=== PATIENT | male | born 1955 | race Caucasian/White ===

== ENCOUNTER 2023-03-24 07:20 | Outpatient (CLI) | payer OTHER, SELFPAY | END 2023-03-24 07:21 | disposition home or self-care (01) | LOC: NFLDREF 03-27 09:52 | PROVIDERS: PCP Family Medicine; Referring Provider Family Medicine; Visit Provider Family Medicine | DX: Z13.1 Encounter for screening for diabetes mellitus (principal); Z12.5 Encounter for screening for malignant neoplasm of prostate; Z13.6 Encounter for screening for cardiovascular disorders | CPT/HCPCS: 80061; 82947; 84153 ==

== ENCOUNTER 2023-04-03 18:40 | Emergency (ER) | payer OTHER, SELFPAY ==
[2023-04-03 18:47] VITALS: BP 130/65; PULSE 80; RESP 18; TEMP 36.5; O2SAT 99; BMI 19.4
--- NOTE | 2023-04-03 19:04 | CRLHL7_ITS ---
For Patients: As a result of the Century Cures Act, medical imaging exams and procedure reports are released immediately into your electronic medical record. You may view this report before your referring provider. If you have questions, please contact your health care provider. INDICATION: Shoulder pain, no injury. TECHNIQUE: Three views of the right shoulder. FINDINGS: Glenohumeral joint is normal. Subacromial space is preserved. Moderate AC joint arthrosis. Otherwise normal exam. Dictated by Carlos Glynn MD @ 04/03/2023 8:04:46 PM (Electronically Signed)
--- NOTE | 2023-04-03 19:11 | ED_ITS ---
HPI - General Adult General Date Seen: 04/03/23 Chief complaint: Shoulder Injury/Pain Stated complaint: R shoulder pain Time Seen by Provider: 04/03/23 18:43 Source: patient and family Mode of arrival: ambulatory Limitations: no limitations History of Present Illness HPI narrative: Patient is a 67-year-old gentleman who presents here with the right shoulder discomfort he is right-hand dominant, for the last 48 hours he has noted increasing pain in his right shoulder and really inability to move it around, his tells me they really could move it that well before, but this is significant issue with moving it now. He has not had any fevers or chills associated with this, he reports shoulder swollen. There is no history trauma or injury associated with this. He has no past history of gout. 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 Is now on a decreasing dosage of steroids which I believe from his description is Medrol. Denies any numbness tingling weakness the pain does not arise in his neck, does not go down his arm stays in the shoulder itself. He has taken 800 mg of ibuprofen today for the discomfort. Is not taking Tylenol. Associated symptoms: denies other symptoms Treatments prior to arrival: NSAID Related Data Previous Rx's Medication Instructions Recorded hydroxychloroquine 200 mg tablet 200 mg PO BID #180 tabs 03/01/23 hydroxyzine HCl 25 mg tablet 25 - 50 mg (1 - 2 x 25 mg) PO TID 03/28/23 PRN anxiety #90 tabs prednisone 20 mg tablet 20 - 60 mg (1 - 3 x 20 mg) PO QDAY 03/28/23 #42 tabs triamcinolone acetonide 0.1 % 1 applic topical BID #80 grams 03/28/23 topical cream Allergies Allergy/AdvReac Type Severity Reaction Status Date / Time No Known Drug Allergies Allergy Verified 03/28/23 13:33 Review of Systems Status of ROS: Reports: 10 or more systems reviewed and unremarkable except as noted in History and below [facility] Medical History Boil ?L02.92 - Furuncle, unspecified (ICD-10) Lupus ?M32.9 - Systemic lupus erythematosus, unspecified (ICD-10) Social History Smoking Status: Never smoker Do you use any of these nicotine containing products: None Second hand tobacco smoke exposure: No How often do you have a drink containing alcohol: 4 or more times a week How many standard drinks containing alcohol do you have on a typical day: 1 or 2 How often do you have six or more drinks on one occasion: Never AUDIT-C Alcohol total score: 4 Non-prescribed substance use: denies use Little interest or pleasure in doing things: several days Feeling down, depressed, or hopeless: several days service: No Exam Narrative: Exam Narrative: On examination he is examined, he clearly has a rash of exfoliative dermatitis on his body, his right shoulder does appear more swollen than his left, he has really limited external rotation noted of his right shoulder he can come to neutral. He has limited abduction to approximately 30?, there is no tenderness to palpation over his AC joint all the pains he has to be anterior over shoulder. His biceps has movement on the right side, in come rate up with this, extension of his triceps is normal is brachial and radial pulses are normal in his right side is weaver hand strengths are normal finger abduction 1st finger opposition is normal his neck has normal range of motion in flexion extension lateral flexion and rotation. Sensation is normal over his right hand and arm. Const: Vital Signs, click to edit/add: Vital Signs - 24 hr 04/03/23 18:47 Temperature 97.7 F Pulse Rate [Pulse Oximeter] 80 Respiratory Rate 18 Blood Pressure [Le ft Upper Arm] 130/65 Pulse Oximetry 99 Oxygen Delivery Me thod Room Air Course Course Hospital Course: I also did ultrasound of his the right shoulder, this showed just trace amount of fluid 1-2 mm overlying the humeral head. I wonder if this is consistent with more rotator cuff type injury. As he definitely is on medication, such as steroids with this could have occurred his sleep. We talked about possibility of this being septic arthritis, given his immunosuppression with of both the steroid hydroxychloroquine, I do not think this occurred he does not have a large effusion, I think tapping this would be the wrong idea the sore, I contacted Orthopedics and they will see him early this week. Will give some tramadol for the pain he can take a better dose ibuprofen and Tylenol and will sling it, and kind of go from there he was okay with this, but I do want him to follow-up if he has fevers chills worsening condition. He was comfortable with this. Vital Signs Vital signs: Initial Vital Signs Temperature 97.7 F 04/03/23 18:47 Temperature Source Temporal Artery Scan 04/03/23 18:47 Pulse Rate 80 04/03/23 18:47 Pulse Rhythm Regular 04/03/23 18:47 Respiratory Rate 18 04/03/23 18:47 Blood Pressure 130/65 04/03/23 18:47 Blood Pressure Mean 86 04/03/23 18:47 Blood Pressure Position Sitting 04/03/23 18:47 Pulse Oximetry 99 04/03/23 18:47 Oxygen Delivery Method Room Air 04/03/23 18:47 Vital Signs Temperature 97.7 F 04/03/23 18:47 Pulse Rate 80 04/03/23 18:47 Respiratory Rate 18 04/03/23 18:47 Blood Pressure 130/65 04/03/23 18:47 Pulse Oximetry 99 04/03/23 18:47 Oxygen Delivery Method Room Air 04/03/23 18:47 Temperature 97.7 F 04/03/23 18:47 Pulse Rate 80 04/03/23 18:47 Respiratory Rate 18 04/03/23 18:47 Blood Pressure 130/65 04/03/23 18:47 Pulse Oximetry 99 04/03/23 18:47 Oxygen Delivery Method Room Air 04/03/23 18:47 Medical Decision Making Imaging Data Shoulder x-ray: My impression: Negative shoulder x-ray Radiologist's impression: Patient: ONEAL TOUSSAINT Facility: [facility] . Site : 1955 Study: XRay Shoulder Right 3 VIEWS-04/03/2023 7:23:04 PM Ordering Physician: Chitra Duarte Final Report: INDICATION: Shoulder pain, no injury. TECHNIQUE: Three views of the right shoulder. FINDINGS: Glenohumeral joint is normal. Subacromial space is preserved. Moderate AC joint arthrosis. Otherwise normal exam. Dictated by Carlos Glynn MD @ 04/03/2023 8:04:46 PM (Electronic Signature) Discharge Plan Discharge Clinical Impression: Shoulder pain, right Patient Disposition: Home w/ Parent or Adult Condition: Improved Instructions: Arthralgia (ED), Shoulder Pain (ED), Shoulder Impingement S yndrome (ED) Additional Instructions: Home rest use of ibuprofen 800 mg p.o. t.i.d. may also use some Tylenol with this a tramadol for breakthrough pain, sling also. I spoke to Orthopedics and they will call you this week to get you in to be seen, return to the emergency room if increasing pain fevers chills or swelling Prescriptions: No Action prednisone 20 mg tablet 20 - 60 mg PO QDAY Qty: 42 0RF Rx Instructions: Take 60mg daily x 1 week, then 40 mg daily x 1 week, then 20 mg daily x 1 week. hydroxyzine HCl 25 mg tablet 25 - 50 mg PO TID PRN (Reason: anxiety) Qty: 90 1RF triamcinolone acetonide 0.1 % cream 1 applic topical BID Qty: 80 0RF Rx Instructions: Apply topically to affected area twice daily for 3 days at a time, give 4 days off of cream to minimize thinning of skin hydroxychloroquine 200 mg tablet 200 mg PO BID Qty: 180 0RF Follow Up/Referrals: Kush Huntley MD [Primary Care Provider] - Stand Alone Forms: [employer] Info Instructions
== END 2023-04-03 20:15 | disposition home or self-care (01) ==
PROVIDERS: Emergency Provider Family Medicine; PCP Family Medicine
DX: M25.511 Pain in right shoulder (principal)
CPT/HCPCS: 73030; 99283; 99284

== ENCOUNTER 2023-04-05 08:27 | Outpatient (CLI) | payer OTHER, SELFPAY | END 2023-04-05 08:28 | disposition home or self-care (01) | LOC: NFLDREF 18:42 | PROVIDERS: PCP Family Medicine; Referring Provider Family Medicine; Visit Provider Physician Assistant Surgical | DX: L93.2 Other local lupus erythematosus (principal); M32.9 Systemic lupus erythematosus, unspecified; Z79.631 Long term (current) use of antimetabolite agent; M25.511 Pain in right shoulder | CPT/HCPCS: 80076 ==

== ENCOUNTER 2023-04-08 16:49 | Inpatient (IN) | payer OTHER, SELFPAY ==
[2023-04-08] VITALS (8 sets, daily range): BP systolic 118–128; BP diastolic 65–66; PULSE 72–89; RESP 18; TEMP 38.3–38.4; O2SAT 96–97; BMI 19.4
[2023-04-08 17:14] LABS: Appearance Urine Clear (Clear); Bilirubin Urine Negative (Negative); Blood Urine Negative (Negative); Color Urine Yellow (Yellow); Glucose Urine Negative (Negative); Ketones Urine Negative (Negative); Leukocyte Esterase Urine Trace (Negative); Nitrite Urine Negative (Negative); Protein Urine Negative (Negative); pH Urine 8.5 (5.0-8.5)
[2023-04-08 17:28] LABS: RBC Urine 0-2 (0-2); WBC Urine 0-2 (0-5)
--- NOTE | 2023-04-08 17:44 | ED.FEVER ---
HPI - Fever General Time Seen by Provider: 17:44 <Aminata Link MD - Last Filed: 04/09/23 11:09> Date Seen: 04/08/23 <Aminata Link MD - Last Filed: 04/09/23 11:09> Chief Complaint: Fever <Aminata Link MD - Last Filed: 04/09/23 11:09> Stated Complaint: Fever <Aminata Link MD - Last Filed: 04/09/23 11:09> Time Seen by Provider: 04/08/23 17:41 <Aminata Link MD - Last Filed: 04/09/23 11:09> Source: patient and RN notes reviewed <Aminata Link MD - Last Filed: 04/09/23 11:09> Mode of arrival: ambulatory <Aminata Link MD - Last Filed: 04/09/23 11:09> Limitations: no limitations <Aminata Link MD - Last Filed: 04/09/23 11:09> History of Present Illness HPI Narrative: Patient is a 67-year-old male coming in [facility] with primary concern of his right neck hurting him. He states it hurts on the right side cannot move. It does not hurt centrally but the side. He has developed a fever today as well. Patient was seen on the 18 of this month with onset of acute right shoulder pain for few days. They were worried potentially about rotator cuff pathology verses frozen shoulder per patient's report. I have reviewed the note. X-ray showed some AC joint arthritis but otherwise no acute abnormality. He did get an ultrasound over the area by the ED physician and there was some minimal fluid. Patient did follow up with Orthopedics, is scheduled to have an MRI of his shoulder this next week. Now, since last night he developed right neck pain, hurts to turn his neck or move it only on the right side. There is no numbness tingling in the arm. He has a document temperature of a 101.2?. His gave him 2 Tylenol arthritis which were 650 mg around 4:00 p.m. today. He was given some tramadol for pain relief. 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 Denies any shortness of breath or cough. His family feels like his speech is maybe been a little off, confused today. Patient notes that yesterday he did try to go about his day and did drive. He was having some pain with raising his shoulder but was still able to drive. They have noted that he is globally more weak. He has noticed some increase dribbling with urination but no dysuria. Denies any abdominal pain, no nausea or vomiting. <Aminata Link MD - Last Filed: 04/09/23 11:09> MD elicited complaint: fever, weakness and other (right neck pain, shoulder pain) <Aminata Link MD - Last Filed: 04/09/23 11:09> Related Data Home Medications: Home Medications Medication Instructions Recorded Confirmed acetaminophen 500 mg tablet 500 mg PO Q6H PRN 04/05/23 04/09/23 (Tylenol Extra Strength) prednisone 20 mg tablet 20 - 60 mg PO DAILY 04/09/23 04/09/23 tramadol 50 mg tablet 50 mg PO QHS PRN pain 04/09/23 04/09/23 Previous Rx's Medication Instructions Recorded hydroxyzine HCl 25 mg tablet 25 - 50 mg (1 - 2 x 25 mg) PO TID 03/28/23 PRN anxiety #90 tabs triamcinolone acetonide 0.1 % 1 applic topical BID #80 grams 03/28/23 topical cream methotrexate sodium 2.5 mg tablet 20 mg (8 x 2.5 mg) PO QWEEK #32 04/05/23 tabs <Aminata Link MD - Last Filed: 04/09/23 11:09> Allergies/Adverse Reactions: Allergies Allergy/AdvReac Type Severity Reaction Status Date / Time No Known Drug Allergies Allergy Verified 04/05/23 11:22 <Aminata Link MD - Last Filed: 04/09/23 11:09> Review of Systems Status of ROS Reports: 10 or more systems reviewed and unremarkable except as noted in History and below <Aminata Link MD - Last Filed: 04/09/23 11:09> [facility] Medical History: Medical History Cutaneous lupus erythematosus ?L93.2 - Other local lupus erythematosus (ICD-10) Boil ?L02.92 - Furuncle, unspecified (ICD-10) Lupus ?M32.9 - Systemic lupus erythematosus, unspecified (ICD-10) <Aminata Link MD - Last Filed: 04/09/23 11:09> Social History: Social History What is your current living situation: I presently have a place to live Problems where you live: no known problems Problems where you live details: none In the past 12 months, utilities in danger of being shut off: no In the past 12 mos, have been you worried that your food would run out before you had money to buy more?: never true In the past 12 mos, the food you bought just didn't last and you didn't have money to buy more?: never true Highest level of school completed/degree received: Master's degree Smoking Status: Never smoker Do you use any of these nicotine containing products: None Second hand tobacco smoke exposure: No How often do you have a drink containing alcohol: 2-3 times a week How many standard drinks containing alcohol do you have on a typical day: 1 or 2 How often do you have six or more drinks on one occasion: Never AUDIT-C Alcohol total score: 3 Non-prescribed substance use: denies use Caffeine: Yes (2 cups of coffee) How often does anyone, including family, friends and others, physically hurt you: How often does anyone, including family, friends and others, insult or talk down to you: How often does anyone, including family, friends and others, threaten you with harm: How often does anyone, including family, friends and others, scream or curse at you: Little interest or pleasure in doing things: several days Feeling down, depressed, or hopeless: several days Gender Identity: male service: No <Aminata Link MD - Last Filed: 04/09/23 11:09> Exam Const Vital Signs, click to edit/add: Vital Signs - 24 hr 04/08/23 17:00 04/08/23 17:18 04/08/23 17:27 Temperature 101.2 F H Pulse Rate 72 73 Pulse Rate [Pulse Oximeter] 89 Respiratory Rate 18 Blood Pressure 128/66 Blood Pressure [Left Upper Arm] 124/65 Blood Pressure [Right Arm] Pulse Oximetry 96 97 97 Oxygen Delivery Method Room Air 04/08/23 17:29 04/08/23 17:30 04/08/23 17:31 Temperature Pulse Rate 76 75 Pulse Rate [Pulse Oximeter] Respiratory Rate Blood Pressure 118/65 Blood Pressure [Left Upper Arm] Blood Pressure [Right Arm] Pulse Oximetry 96 96 96 Oxygen Delivery Method Room Air 04/08/23 18:00 04/08/23 18:19 04/09/23 00:52 Temperature 100.9 F H 99.5 F Pulse Rate 83 Pulse Rate [Pulse Oximeter] Respiratory Rate 20 Blood Pressure Blood Pressure [Left Upper Arm] Blood Pressure [Right Arm] 156/69 H Pulse Oximetry 97 97 Oxygen Delivery Method Room Air 04/09/23 01:04 04/09/23 01:15 04/09/23 03:00 Temperature 100.1 F H 102.9 F H Pulse Rate Pulse Rate [Pulse Oximeter] 82 Respiratory Rate 20 20 Blood Pressure Blood Pressure [Left Upper Arm] Blood Pressure [Right Arm] 132/58 L Pulse Oximetry 97 95 Oxygen Delivery Method Room Air Room Air 04/09/23 03:34 04/09/23 05:44 04/09/23 05:44 Temperature 102.9 F H 98.2 F 98.2 F Pulse Rate Pulse Rate [Pulse Oximeter] Respiratory Rate Blood Pressure Blood Pressure [Left Upper Arm] Blood Pressure [Right Arm] Pulse Oximetry Oxygen Delivery Method <Aminata Link MD - Last Filed: 04/09/23 11:09> Vital Signs - 24 hr 04/08/23 17:00 04/08/23 17:18 04/08/23 17:27 Temperature 101.2 F H Pulse Rate 72 73 Pulse Rate [Pulse Oximeter] 89 Respiratory Rate 18 Blood Pressure 128/66 Blood Pressure [Left Upper Arm] 124/65 Blood Pressure [Right Arm] Pulse Oximetry 96 97 97 Oxygen Delivery Method Room Air 04/08/23 17:29 04/08/23 17:30 04/08/23 17:31 Temperature Pulse Rate 76 75 Pulse Rate [Pulse Oximeter] Respiratory Rate Blood Pressure 118/65 Blood Pressure [Left Upper Arm] Blood Pressure [Right Arm] Pulse Oximetry 96 96 96 Oxygen Delivery Method Room Air 04/08/23 18:00 04/08/23 18:19 04/09/23 00:52 Temperature 100.9 F H 99.5 F Pulse Rate 83 Pulse Rate [Pulse Oximeter] Respiratory Rate 20 Blood Pressure Blood Pressure [Left Upper Arm] Blood Pressure [Right Arm] 156/69 H Pulse Oximetry 97 97 Oxygen Delivery Method Room Air 04/09/23 01:04 04/09/23 01:15 04/09/23 03:00 Temperature 100.1 F H 102.9 F H Pulse Rate Pulse Rate [Pulse Oximeter] 82 Respiratory Rate 20 20 Blood Pressure Blood Pressure [Left Upper Arm] Blood Pressure [Right Arm] 132/58 L Pulse Oximetry 97 95 Oxygen Delivery Method Room Air Room Air 04/09/23 03:34 04/09/23 05:44 04/09/23 05:44 Temperature 102.9 F H 98.2 F 98.2 F Pulse Rate Pulse Rate [Pulse Oximeter] Respiratory Rate Blood Pressure Blood Pressure [Left Upper Arm] Blood Pressure [Right Arm] Pulse Oximetry Oxygen Delivery Method <Junior Salcedo MD - Last Filed: 04/08/23 21:37> Documenting provider has reviewed patient's vital signs: yes <Aminata Link MD - Last Filed: 04/09/23 11:09> Common normals: no apparent distress, oriented x3, no limitations, healthy appearing and alert <Aminata Link MD - Last Filed: 04/09/23 11:09> General appearance: cooperative, comfortable, well kempt and well developed <Aminata Link MD - Last Filed: 04/09/23 11:09> Nutritional appearance: thin <Aminata Link MD - Last Filed: 04/09/23 11:09> HENMT Common normals: normocephalic, head/scalp atraumatic, hearing grossly normal bilaterally, external ears normal, EAC's normal, TM's normal bilaterally, external nose normal, nasal mucous membranes and turbinates normal, moist oral mucous membranes, oropharynx normal, dentition normal and gingiva normal <Aminata Link MD - Last Filed: 04/09/23 11:09> Head and scalp: normocephalic and atraumatic <Aminata Link MD - Last Filed: 04/09/23 11:09> Nose: external nose normal and nasal mucous membranes and turbinates normal <Aminata Link MD - Last Filed: 04/09/23 11:09> External ear: external ears normal <Aminata Link MD - Last Filed: 04/09/23 11:09> External auditory canal: EAC's normal <Aminata Link MD - Last Filed: 04/09/23 11:09> Tympanic membrane: TM's normal bilaterally <Aminata Link MD - Last Filed: 04/09/23 11:09> Eye Common normals: PERRL, EOMs intact bilaterally, conjunctivae normal and no scleral icterus <Aminata Link MD - Last Filed: 04/09/23 11:09> Conjunctiva: conjunctiva(e) normal <Aminata Link MD - Last Filed: 04/09/23 11:09> Pupil: PERRL <Aminata Link MD - Last Filed: 04/09/23 11:09> Neck & C-Spine Common normals: no lymphadenopathy, no JVD and thyroid normal <Aminata Link MD - Last Filed: 04/09/23 11:09> Thyroid: thyroid normal <Aminata Link MD - Last Filed: 04/09/23 11:09> Other: Complains of significant pain when I palpate along his right trapezius border, no midline tenderness however. He states when he attempts to turn his neck or flex it is hurting along this right muscular border. I feel no mass. <Aminata Link MD - Last Filed: 04/09/23 11:09> Lymph Lymphatic: no lymphadenopathy noted <Aminata Link MD - Last Filed: 04/09/23 11:09> Chest Common normals: inspection of chest normal and palpation of chest normal <Aminata Link MD - Last Filed: 04/09/23 11:09> Resp Common normals: normal respiratory effort, no retractions, no use of accessory muscles and clear to auscultation bilaterally <Aminata Link MD - Last Filed: 04/09/23 11:09> Auscultation: clear to auscultation bilaterally <Aminata Link MD - Last Filed: 04/09/23 11:09> Cardio Common normals: no JVD, regular rate, regular rhythm, S1 normal heart sound, S2 normal heart sound, no gallops, no clicks and no murmurs <Aminata Link MD - Last Filed: 04/09/23 11:09> Rate: regular rate <Aminata Link MD - Last Filed: 04/09/23 11:09> Rhythm: regular rhythm <Aminata Link MD - Last Filed: 04/09/23 11:09> Heart sounds: S1 normal and S2 normal <Aminata Link MD - Last Filed: 04/09/23 11:09> GI Common normals: Normal to inspection, nondistended, normoactive bowel sounds present, soft to palpation, non-tender, no hepatosplenomegaly and no masses <Aminata Link MD - Last Filed: 04/09/23 11:09> Palpation: soft and no hepatosplenomegaly <Aminata Link MD - Last Filed: 04/09/23 11:09> Extremity Other: Is palpably tender along the right anterior shoulder, very limited range of motion. Do not feel any extensive effusion over the shoulder, no overlying erythema seen. He is most definitely limited with range of motion however. Distal sensation and strength is intact in this extremity. <Aminata Link MD - Last Filed: 04/09/23 11:09> Neuro Common normals: oriented x3 <Aminata Link MD - Last Filed: 04/09/23 11:09> Sensorium/orientation: alert <Aminata Link MD - Last Filed: 04/09/23 11:09> Psych Appearance: well kempt <Aminata Link MD - Last Filed: 04/09/23 11:09> Other: Do not note any significant slurring of his speech. Do have a sense that sometimes he seems a bit confused into understand why family members are concerned about him being off. <Aminata Link MD - Last Filed: 04/09/23 11:09> Course Course Hospital Course: Patient is concerning for septic arthritis or underlying significant infection, definitely is immunocompromised with his prednisone and methotrexate. He did get tramadol prescribed as well, wonder if that could be some of the confusion but certainly fever and infection could be causing this, i.e. acute delirium developing. Will obtain full complement labs including blood cultures. I am going to image his head with CT as well as cervical spine with CT. I do not have capacity to do MRI at this time. Have reviewed his right shoulder x-ray, do not plan on reimaging this with plain films at this time. His did just give him adequate dose of Tylenol less than 2 hours ago, will continue to monitor and see if this works his fever down. <Aminata Link MD - Last Filed: 04/09/23 11:09> Reevaluation(s) Time of Reevaluation #1: 20:32 <Aminata Link MD - Last Filed: 04/09/23 11:09> Reevaluation #1: Patient is feeling a bit better, recheck of his temperature is 99.3? F. Have reviewed that we have ordered chest CT and right shoulder CT to help further delineate exact etiology of infection. Certainly an MRI would be better but we cannot do that. We do need to try to rule out a right shoulder septic arthritis. I have preliminarily reviewed this with the hospitalist. We will be signing out to Dr. Salcedo. <Aminata Link MD - Last Filed: 04/09/23 11:09> Consultations Consultation #1: Reviewed case with hospitalist. He would like us to proceed with chest CT with IV contrast and CT of right shoulder. Will certainly see if there is truly an underlying pneumonia on the chest CT, see if there is any potential evidence for septic arthritis of this right shoulder. <Aminata Link MD - Last Filed: 04/09/23 11:09> Time: 20:00 <Aminata Link MD - Last Filed: 04/09/23 11:09> Vital Signs Vital signs: Initial Vital Signs Temperature 101.2 F H 04/08/23 17:00 Temperature Source Temporal Artery Scan 04/08/23 17:00 Pulse Rate 89 04/08/23 17:00 Respiratory Rate 18 04/08/23 17:00 Blood Pressure 124/65 04/08/23 17:00 Blood Pressure Mean 84 04/08/23 17:00 Pulse Oximetry 96 04/08/23 17:00 Oxygen Delivery Method Room Air 04/08/23 17:00 Vital Signs Temperature 101.2 F H 04/08/23 17:00 Pulse Rate 89 04/08/23 17:00 Respiratory Rate 18 04/08/23 17:00 Blood Pressure 124/65 04/08/23 17:00 Pulse Oximetry 96 04/08/23 17:00 Oxygen Delivery Method Room Air 04/08/23 17:00 Temperature 98.2 F 04/09/23 05:44 Pulse Rate 82 04/09/23 03:00 Respiratory Rate 20 04/09/23 03:00 Blood Pressure 132/58 L 04/09/23 03:00 Pulse Oximetry 95 04/09/23 03:00 Oxygen Delivery Method Room Air 04/09/23 03:00 <Aminata Link MD - Last Filed: 04/09/23 11:09> Initial Vital Signs Temperature 101.2 F H 04/08/23 17:00 Temperature Source Temporal Artery Scan 04/08/23 17:00 Pulse Rate 89 04/08/23 17:00 Respiratory Rate 18 04/08/23 17:00 Blood Pressure 124/65 04/08/23 17:00 Blood Pressure Mean 84 04/08/23 17:00 Pulse Oximetry 96 04/08/23 17:00 Oxygen Delivery Method Room Air 04/08/23 17:00 Vital Signs Temperature 101.2 F H 04/08/23 17:00 Pulse Rate 89 04/08/23 17:00 Respiratory Rate 18 04/08/23 17:00 Blood Pressure 124/65 04/08/23 17:00 Pulse Oximetry 96 04/08/23 17:00 Oxygen Delivery Method Room Air 04/08/23 17:00 Temperature 98.2 F 04/09/23 05:44 Pulse Rate 82 04/09/23 03:00 Respiratory Rate 20 04/09/23 03:00 Blood Pressure 132/58 L 04/09/23 03:00 Pulse Oximetry 95 04/09/23 03:00 Oxygen Delivery Method Room Air 04/09/23 03:00 <Junior Salcedo MD - Last Filed: 04/08/23 21:37> MDM - Fever MDM Narrative Medical decision making narrative: Patient signed out to me at change if with fever infiltrate on chest x-ray is sore right shoulder. Patient's blood cultures have been collected. CT of the chest shows pneumonia. CT of the shoulder showed no acute abnormalities with only chronic changes. This time patient is getting blood cultures have been drawn I did start Rocephin and Zithromax. Patient will be admitted to the hospitalist service for ongoing care. <Junior Salcedo MD - Last Filed: 04/08/23 21:37> Lab Data Attestation: I reviewed the patient's lab results. <Aminata Link MD - Last Filed: 04/09/23 11:09> Labs: Lab Results 04/08/23 04/08/23 04/08/23 Range/Units 17:07 17:33 18:05 WBC 18.94 H (4.50-11.00) K/uL RBC 4.21 L (4.30-5.90) m/uL Hgb 11.7 L (13.5-17.5) gm/dL Hct 35.8 L (37.0-53.0) % MCV 85 (80-100) fL MCH 28 (26-34) pg MCHC 33 (32-36) gm/dL RDW Coeff of [place] 13.4 (11.5-15.5) % Plt Count 310 (140-440) K/uL Neut % (Auto) 79.9 H (42.0-72.0) % Lymph % (Auto) 5.7 L (20-44) % [place] % (Auto) 13.9 H (0.0-11.0) % Eos % (Auto) 0.0 (0.0-7.0) % Baso % (Auto) 0.1 (0.0-3.0) % Neut # (Auto) 15.10 H (1.7-7.0) K/uL Lymph # (Auto) 1.10 (0.90-2.90) K/uL [place] # (Auto) 2.60 H (0.00-0.90) K/UL Eos # (Auto) 0.00 (0.00-0.50) K/uL Baso # (Auto) 0.00 (0.00-0.30) K/uL Diff Slide Review (Acceptable) ESR 63 H (2-15) mm/hr Sodium 129 L (135-149) mmol/L Potassium 3.6 (3.6-5.1) mmol/L Chloride 96 (96-114) mmol/L Carbon Dioxide 27 (20-32) mmol/L BUN 12 (7-30) mg/dL Creatinine 0.6 (0.5-1.5) mg/dL Estimated Creat Clear 62.09 Estimated GFR 106 ml/min Glucose 99 (60-115) mg/dL Lactate 1.0 (0.5-1.9) mmol/L Calcium 8.4 (8.4-10.6) mg/dL Total Bilirubin 0.7 (0.1-1.5) mg/dL AST 28 (12-35) U/L ALT 26 (4-50) U/L Alkaline Phosphatase 79 (40-150) U/L Total Creatine Kinase < 20 L (54-186) U/L C-Reactive Protein 12.7 H (0.5-1.0) mg/dL Total Protein 6.3 (6.0-8.3) g/dL Albumin 3.2 L (3.3-5.0) g/dL Procalcitonin 0.33 (<0.50) ng/mL TSH (0.270-4.20) uIU/mL Urine Color Yellow (Yellow) Urine Appearance Clear (Clear) Urine pH 8.5 (5.0-8.5) Ur Specific [place] 1.020 (1.000-1.030) Urine Protein Negative (Negative) Urine Glucose (UA) Negative (Negative) Urine Ketones Negative (Negative) Urine Blood Negative (Negative) Urine Nitrite Negative (Negative) Urine Bilirubin Negative (Negative) Urine Urobilinogen 4.0 A (0.2-1.0) Ur Leukocyte Esterase Trace A (Negative) Urine RBC 0-2 (0-2) Urine WBC 0-2 (0-5) Ur Squamous Epith Cells None (None-Few) Urine Bacteria None (None) SARS-CoV-2 (PCR) Negative SARS-CoV-2 (Negative) Influenza Type A (PCR) Negative PCR FLU A (Negative) Influenza Type B (PCR) Negative PCR FLU B (Negative) RSV (PCR) Negative PCR RSV (Negative) Lab Acknowledgement 04/09/23 04/09/23 Range/Units 06:42 06:47 WBC 20.66 H (4.50-11.00) K/uL RBC 4.09 L (4.30-5.90) m/uL Hgb 11.6 L (13.5-17.5) gm/dL Hct 34.7 L (37.0-53.0) % MCV 85 (80-100) fL MCH 28 (26-34) pg MCHC 33 (32-36) gm/dL RDW Coeff of [place] 13.4 (11.5-15.5) % Plt Count 287 (140-440) K/uL Neut % (Auto) 82.4 H (42.0-72.0) % Lymph % (Auto) 4.4 L (20-44) % [place] % (Auto) 12.7 H (0.0-11.0) % Eos % (Auto) 0.0 (0.0-7.0) % Baso % (Auto) 0.0 (0.0-3.0) % Neut # (Auto) 17.00 H (1.7-7.0) K/uL Lymph # (Auto) 0.90 (0.90-2.90) K/uL [place] # (Auto) 2.60 H (0.00-0.90) K/UL Eos # (Auto) 0.00 (0.00-0.50) K/uL Baso # (Auto) 0.00 (0.00-0.30) K/uL Diff Slide Review Acceptable Review (Acceptable) ESR (2-15) mm/hr Sodium 131 L (135-149) mmol/L Potassium 3.7 (3.6-5.1) mmol/L Chloride 98 (96-114) mmol/L Carbon Dioxide 27 (20-32) mmol/L BUN 13 (7-30) mg/dL Creatinine 0.7 (0.5-1.5) mg/dL Estimated Creat Clear 62.77 Estimated GFR 101 ml/min Glucose 97 (60-115) mg/dL Lactate (0.5-1.9) mmol/L Calcium 8.0 L (8.4-10.6) mg/dL Total Bilirubin 0.6 (0.1-1.5) mg/dL AST 27 (12-35) U/L ALT 25 (4-50) U/L Alkaline Phosphatase 77 (40-150) U/L Total Creatine Kinase (54-186) U/L C-Reactive Protein (0.5-1.0) mg/dL Total Protein 6.0 (6.0-8.3) g/dL Albumin 2.9 L (3.3-5.0) g/dL Procalcitonin (<0.50) ng/mL TSH 1.950 (0.270-4.20) uIU/mL Urine Color (Yellow) Urine Appearance (Clear) Urine pH (5.0-8.5) Ur Specific [place] (1.000-1.030) Urine Protein (Negative) Urine Glucose (UA) (Negative) Urine Ketones (Negative) Urine Blood (Negative) Urine Nitrite (Negative) Urine Bilirubin (Negative) Urine Urobilinogen (0.2-1.0) Ur Leukocyte Esterase (Negative) Urine RBC (0-2) Urine WBC (0-5) Ur Squamous Epith Cells (None-Few) Urine Bacteria (None) SARS-CoV-2 (PCR) (Negative) Influenza Type A (PCR) (Negative) Influenza Type B (PCR) (Negative) RSV (PCR) (Negative) Lab Acknowledgement Test Added <Aminata Link MD - Last Filed: 04/09/23 11:09> Lab Results 04/08/23 04/08/23 04/08/23 Range/Units 17:07 17:33 18:05 WBC 18.94 H (4.50-11.00) K/uL RBC 4.21 L (4.30-5.90) m/uL Hgb 11.7 L (13.5-17.5) gm/dL Hct 35.8 L (37.0-53.0) % MCV 85 (80-100) fL MCH 28 (26-34) pg MCHC 33 (32-36) gm/dL RDW Coeff of [place] 13.4 (11.5-15.5) % Plt Count 310 (140-440) K/uL Neut % (Auto) 79.9 H (42.0-72.0) % Lymph % (Auto) 5.7 L (20-44) % [place] % (Auto) 13.9 H (0.0-11.0) % Eos % (Auto) 0.0 (0.0-7.0) % Baso % (Auto) 0.1 (0.0-3.0) % Neut # (Auto) 15.10 H (1.7-7.0) K/uL Lymph # (Auto) 1.10 (0.90-2.90) K/uL [place] # (Auto) 2.60 H (0.00-0.90) K/UL Eos # (Auto) 0.00 (0.00-0.50) K/uL Baso # (Auto) 0.00 (0.00-0.30) K/uL Diff Slide Review (Acceptable) ESR 63 H (2-15) mm/hr Sodium 129 L (135-149) mmol/L Potassium 3.6 (3.6-5.1) mmol/L Chloride 96 (96-114) mmol/L Carbon Dioxide 27 (20-32) mmol/L BUN 12 (7-30) mg/dL Creatinine 0.6 (0.5-1.5) mg/dL Estimated Creat Clear 62.09 Estimated GFR 106 ml/min Glucose 99 (60-115) mg/dL Lactate 1.0 (0.5-1.9) mmol/L Calcium 8.4 (8.4-10.6) mg/dL Total Bilirubin 0.7 (0.1-1.5) mg/dL AST 28 (12-35) U/L ALT 26 (4-50) U/L Alkaline Phosphatase 79 (40-150) U/L Total Creatine Kinase < 20 L (54-186) U/L C-Reactive Protein 12.7 H (0.5-1.0) mg/dL Total Protein 6.3 (6.0-8.3) g/dL Albumin 3.2 L (3.3-5.0) g/dL Procalcitonin 0.33 (<0.50) ng/mL TSH (0.270-4.20) uIU/mL Urine Color Yellow (Yellow) Urine Appearance Clear (Clear) Urine pH 8.5 (5.0-8.5) Ur Specific [place] 1.020 (1.000-1.030) Urine Protein Negative (Negative) Urine Glucose (UA) Negative (Negative) Urine Ketones Negative (Negative) Urine Blood Negative (Negative) Urine Nitrite Negative (Negative) Urine Bilirubin Negative (Negative) Urine Urobilinogen 4.0 A (0.2-1.0) Ur Leukocyte Esterase Trace A (Negative) Urine RBC 0-2 (0-2) Urine WBC 0-2 (0-5) Ur Squamous Epith Cells None (None-Few) Urine Bacteria None (None) SARS-CoV-2 (PCR) Negative SARS-CoV-2 (Negative) Influenza Type A (PCR) Negative PCR FLU A (Negative) Influenza Type B (PCR) Negative PCR FLU B (Negative) RSV (PCR) Negative PCR RSV (Negative) Lab Acknowledgement 04/09/23 04/09/23 Range/Units 06:42 06:47 WBC 20.66 H (4.50-11.00) K/uL RBC 4.09 L (4.30-5.90) m/uL Hgb 11.6 L (13.5-17.5) gm/dL Hct 34.7 L (37.0-53.0) % MCV 85 (80-100) fL MCH 28 (26-34) pg MCHC 33 (32-36) gm/dL RDW Coeff of [place] 13.4 (11.5-15.5) % Plt Count 287 (140-440) K/uL Neut % (Auto) 82.4 H (42.0-72.0) % Lymph % (Auto) 4.4 L (20-44) % [place] % (Auto) 12.7 H (0.0-11.0) % Eos % (Auto) 0.0 (0.0-7.0) % Baso % (Auto) 0.0 (0.0-3.0) % Neut # (Auto) 17.00 H (1.7-7.0) K/uL Lymph # (Auto) 0.90 (0.90-2.90) K/uL [place] # (Auto) 2.60 H (0.00-0.90) K/UL Eos # (Auto) 0.00 (0.00-0.50) K/uL Baso # (Auto) 0.00 (0.00-0.30) K/uL Diff Slide Review Acceptable Review (Acceptable) ESR (2-15) mm/hr Sodium 131 L (135-149) mmol/L Potassium 3.7 (3.6-5.1) mmol/L Chloride 98 (96-114) mmol/L Carbon Dioxide 27 (20-32) mmol/L BUN 13 (7-30) mg/dL Creatinine 0.7 (0.5-1.5) mg/dL Estimated Creat Clear 62.77 Estimated GFR 101 ml/min Glucose 97 (60-115) mg/dL Lactate (0.5-1.9) mmol/L Calcium 8.0 L (8.4-10.6) mg/dL Total Bilirubin 0.6 (0.1-1.5) mg/dL AST 27 (12-35) U/L ALT 25 (4-50) U/L Alkaline Phosphatase 77 (40-150) U/L Total Creatine Kinase (54-186) U/L C-Reactive Protein (0.5-1.0) mg/dL Total Protein 6.0 (6.0-8.3) g/dL Albumin 2.9 L (3.3-5.0) g/dL Procalcitonin (<0.50) ng/mL TSH 1.950 (0.270-4.20) uIU/mL Urine Color (Yellow) Urine Appearance (Clear) Urine pH (5.0-8.5) Ur Specific [place] (1.000-1.030) Urine Protein (Negative) Urine Glucose (UA) (Negative) Urine Ketones (Negative) Urine Blood (Negative) Urine Nitrite (Negative) Urine Bilirubin (Negative) Urine Urobilinogen (0.2-1.0) Ur Leukocyte Esterase (Negative) Urine RBC (0-2) Urine WBC (0-5) Ur Squamous Epith Cells (None-Few) Urine Bacteria (None) SARS-CoV-2 (PCR) (Negative) Influenza Type A (PCR) (Negative) Influenza Type B (PCR) (Negative) RSV (PCR) (Negative) Lab Acknowledgement Test Added <Junior Salcedo MD - Last Filed: 04/08/23 21:37> Imaging Data CT scan - head: Attestation: I have reviewed the pertinent imaging results. <Aminata Link MD - Last Filed: 04/09/23 11:09> Radiologist's impression: Patient: [facility] Facility:?[facility] Patient ID:?[id number] Site Patient ID:?[id number]. Site :?1955 Study:?CT Head WITHOUT-04/08/2023 7:31:23 PM Ordering Physician:Jarad Coates Final Report: INDICATION: Altered mental status, fever. TECHNIQUE: CT head without contrast. COMPARISON: None. FINDINGS: CSF spaces: Within normal limits for age. Brain parenchyma and extra-axial spaces: Mild chronic white matter ischemic disease. The mclaughlin-white differentiation is normal. No sign of mass, hemorrhage, or midline shift. No extra-axial fluid collection. Skull base and calvarium: The visualized paranasal sinuses and mastoid air cells demonstrate no acute or significant findings. The visualized orbits are grossly unremarkable. No skull fractures. IMPRESSION: No acute intracranial abnormality on this noncontrast study. Please note that all CT scans at this facility use dose modulation, iterative reconstruction, and/or weight-based dosing when appropriate to reduce radiation dose to as low as reasonably achievable. Dictated by Bernardo Leyva MD @ 04/08/2023 7:55:30 PM (Electronic Signature) <Aminata Link MD - Last Filed: 04/09/23 11:09> CT cervical spine: Attestation: I have reviewed the pertinent imaging results. <Aminata Link MD - Last Filed: 04/09/23 11:09> Radiologist's impression: Patient: [facility] Facility:?[facility] Patient ID:?[id number] Site Patient ID:?[id number]. Site :?1955 Study:?CT Spine Cervical -04/08/2023 7:31:56 PM Ordering Physician:Jarad Coates Final Report: INDICATION: Pain. TECHNIQUE: CT cervical spine without contrast. COMPARISON: None. FINDINGS: Vertebrae: Alignment is normal. There are no fractures or suspicious bony lesions. Discs and facet joints: There are diffuse degenerative changes in the disc spaces and facet joints. Extraspinal findings: Paraspinous soft tissues are unremarkable. IMPRESSION: 1. No sign of acute injury. 2. Multilevel degenerative spondylosis. Please note that all CT scans at this facility use dose modulation, iterative reconstruction, and/or weight-based dosing when appropriate to reduce radiation dose to as low as reasonably achievable. Dictated by Bernardo Leyva MD @ 04/08/2023 7:59:25 PM (Electronic Signature) <Aminata Link MD - Last Filed: 04/09/23 11:09> Chest x-ray: Attestation: I have reviewed the pertinent imaging results. <Aminata Link MD - Last Filed: 04/09/23 11:09> Radiologist's impression: Patient: ONEAL [facility] Facility:?[facility] Patient ID:?[id number] Site Patient ID:?[id number]. Site :?1955 Study:?XRay Chest 1 VIEW-04/08/2023 7:22:20 PM Ordering Physician:Jarad Coates Final Report: INDICATION: Chest pain. TECHNIQUE: Chest 1 views. COMPARISON: None. FINDINGS: Cardiovascular and mediastinum: Cardiomediastinal silhouette is within normal limits. Lungs and pleural spaces: Left perihilar opacities. No sign of pleural effusion. No pneumothorax. Bones and soft tissues: No significant findings. IMPRESSION: Subtle left perihilar opacities may reflect infection, aspiration. Dictated by Jin Nichols MD @ 04/08/2023 7:46:29 PM (Electronic Signature) <Aminata Link MD - Last Filed: 04/09/23 11:09> CT scan - chest: Attestation: I have reviewed the pertinent imaging results. <Aminata Link MD - Last Filed: 04/09/23 11:09> Radiologist's impression: Patient: ONEAL [facility] Facility:?[facility] Patient ID:?[id number] Site Patient ID:?[id number]. Site :?1955 Study:?CT Chest 75CC ISOVUE 370-04/08/2023 8:34:11 PM Ordering Physician:Jarad Coates Final Report: INDICATION: INDICATION: INC PAIN. RIGHT SHOULDER. FEVER CT CHEST WITHOUT CONTRAST TECHNIQUE: Multidetector CT imaging was performed through the chest following intravenous contrast administration. Coronal and sagittal reconstructions were generated. COMPARISON: None. FINDINGS: Lungs and airways: Patchy, micronodular, and tree-in-bud infiltrates in both lungs, worse on the left than the right, likely representing pneumonia. Central airways are patent. Pleura and pleural spaces: No pleural effusions or pneumothorax. Heart and mediastinum: Normal heart size. No significant pericardial effusion. No pathologically enlarged mediastinal lymph nodes. Vascular structures: Normal caliber thoracic aorta. Mild coronary artery calcifications. Chest wall and axillae: No mass or axillary lymphadenopathy. Osseous structures: Mild spinal degenerative changes. No acute fractures identified. Upper abdomen: Unremarkable. IMPRESSION: Bilateral patchy, micronodular, and tree-in-bud pulmonary infiltrates, likely representing pneumonia. BLU SALAZAR MD [employer] Dictated by Florencio Salazar MD @ 04/08/2023 8:53:23 PM Please note that all CT scans at this facility use dose modulation, iterative reconstruction, and/or weight-based dosing when appropriate to reduce radiation dose to as low as reasonably achievable. Dictated by: Florencio Salazar MD @ 04/08/2023 20:56:07 (Electronic Signature) <Aminata Link MD - Last Filed: 04/09/23 11:09> CT right shoulder: Attestation: I have reviewed the pertinent imaging results. <Aminata Link MD - Last Filed: 04/09/23 11:09> Radiologist's impression: Patient: ONEAL [facility] Facility:?[facility] Patient ID:?[id number] Site Patient ID:?[id number]. Site :?1955 Study:?CT Shoulder Right WITHOUT-04/08/2023 8:33:33 PM Ordering Physician:Jarad Coates Preliminary Report: No fracture, dislocation, or other acute abnormalities are identified. Mild shoulder degenerative changes are present. Read by:?Florencio Salazar MD @ 04/08/2023 20:56:58 <Aminata Link MD - Last Filed: 04/09/23 11:09> Discharge Plan Discharge Clinical Impression: Pneumonia <Aminata Link MD - Last Filed: 04/09/23 11:09> Patient Disposition: Admitted As Inpatient <Aminata Link MD - Last Filed: 04/09/23 11:09> Condition: Stable <Aminata Link MD - Last Filed: 04/09/23 11:09> Activity Level: No Restrictions <Aminata Link MD - Last Filed: 04/09/23 11:09> No Restrictions <Junior Salcedo MD - Last Filed: 04/08/23 21:37> Discharge Diet: Regular <Aminata Link MD - Last Filed: 04/09/23 11:09> Regular <Junior Salcedo MD - Last Filed: 04/08/23 21:37>
--- NOTE | 2023-04-08 17:56 | CRLHL7_ITS ---
For Patients: As a result of the Cures Act, medical imaging exams and procedure reports are released immediately into your electronic medical record. You may view this report before your referring provider. If you have questions, please contact your health care provider. INDICATION: Altered mental status, fever. TECHNIQUE: CT head without contrast. COMPARISON: None. FINDINGS: CSF spaces: Within normal limits for age. Brain parenchyma and extra-axial spaces: Mild chronic white matter ischemic disease. The mclaughlin-white differentiation is normal. No sign of mass, hemorrhage, or midline shift. No extra-axial fluid collection. Skull base and calvarium: The visualized paranasal sinuses and mastoid air cells demonstrate no acute or significant findings. The visualized orbits are grossly unremarkable. No skull fractures. IMPRESSION: No acute intracranial abnormality on this noncontrast study. Please note that all CT scans at this facility use dose modulation, iterative reconstruction, and/or weight-based dosing when appropriate to reduce radiation dose to as low as reasonably achievable. Dictated by Bernardo Leyva MD @ 04/08/2023 7:55:30 PM (Electronically Signed)
--- NOTE | 2023-04-08 17:56 | CRLHL7_ITS ---
For Patients: As a result of the Cures Act, medical imaging exams and procedure reports are released immediately into your electronic medical record. You may view this report before your referring provider. If you have questions, please contact your health care provider. INDICATION: Pain. TECHNIQUE: CT cervical spine without contrast. COMPARISON: None. FINDINGS: Vertebrae: Alignment is normal. There are no fractures or suspicious bony lesions. Discs and facet joints: There are diffuse degenerative changes in the disc spaces and facet joints. Extraspinal findings: Paraspinous soft tissues are unremarkable. IMPRESSION: 1. No sign of acute injury. 2. Multilevel degenerative spondylosis. Please note that all CT scans at this facility use dose modulation, iterative reconstruction, and/or weight-based dosing when appropriate to reduce radiation dose to as low as reasonably achievable. Dictated by Bernardo Leyva MD @ 04/08/2023 7:59:25 PM (Electronically Signed)
--- NOTE | 2023-04-08 17:56 | CRLHL7_ITS ---
For Patients: As a result of the Cures Act, medical imaging exams and procedure reports are released immediately into your electronic medical record. You may view this report before your referring provider. If you have questions, please contact your health care provider. INDICATION: Chest pain. TECHNIQUE: Chest 1 views. COMPARISON: None. FINDINGS: Cardiovascular and mediastinum: Cardiomediastinal silhouette is within normal limits. Lungs and pleural spaces: Left perihilar opacities. No sign of pleural effusion. No pneumothorax. Bones and soft tissues: No significant findings. IMPRESSION: Subtle left perihilar opacities may reflect infection, aspiration. Dictated by Jin Nichols MD @ 04/08/2023 7:46:29 PM (Electronically Signed)
[2023-04-08 18:22] LABS: Basophils Percent Auto 0.1 % (0.0-3.0); Hematocrit 35.8 % (37.0-53.0); Hemoglobin* 11.7 gm/dL (13.5-17.5); Immature Granulocytes Pct Auto 0.4 %; Lymphocytes Percent Auto 5.7 % (20-44); Mean Corpuscular HGB Conc 33 gm/dL (32-36); Mean Corpuscular Hemoglobin 28 pg (26-34); Mean Corpuscular Volume 85 fL (80-100); Monocytes Percent Auto 13.9 % (0.0-11.0); Neutrophils Percent Auto 79.9 % (42.0-72.0); Platelet Count* 310 K/uL (140-440); RDW Coefficient of Variation % 13.4 % (11.5-15.5); Red Blood Count 4.21 m/uL (4.30-5.90); White Blood Count* 18.94 K/uL (4.50-11.00)
[2023-04-08 18:26] LABS: Slide Review Reflex No
[2023-04-08 19:06] LABS: Albumin* 3.2 g/dL (3.3-5.0); Chloride* 96 mmol/L (96-114); Potassium* 3.6 mmol/L (3.6-5.1); Sodium* 129 mmol/L (135-149)
[2023-04-08 19:08] LABS: Creatinine* 0.6 mg/dL (0.5-1.5); Est. Creatinine Clearance* 62.09; Estimated Glomerular Filt Rate 106 ml/min
[2023-04-08 19:09] LABS: Alanine Aminotransferase* 26 U/L (4-50); Alkaline Phosphatase* 79 U/L (40-150); Aspartate Amino Transferase* 28 U/L (12-35); Bilirubin Total* 0.7 mg/dL (0.1-1.5); Blood Urea Nitrogen* 12 mg/dL (7-30); Calcium* 8.4 mg/dL (8.4-10.6); Carbon Dioxide* 27 mmol/L (20-32); Glucose* 99 mg/dL (60-115); Total Protein* 6.3 g/dL (6.0-8.3)
[2023-04-08 19:09] LABS: PCR FLU A Negative PCR FLU A (Negative); PCR FLU B Negative PCR FLU B (Negative); PCR RSV Negative PCR RSV (Negative)
[2023-04-08 19:13] LABS: Creatine Kinase* < 20 U/L (54-186)
[2023-04-08 19:22] LABS: SARS PCR* Negative SARS-CoV-2 (Negative)
[2023-04-08 19:24] LABS: Procalcitonin* 0.33 ng/mL (<0.50)
[2023-04-08 19:46] LABS: Erythrocyte SedimentationRate* 63 mm/hr (2-15)
[2023-04-08 20:04] LABS: C Reactive Protein* 12.7 mg/dL (0.5-1.0)
--- NOTE | 2023-04-08 20:06 | CRLHL7_ITS ---
For Patients: As a result of the Century Cures Act, medical imaging exams and procedure reports are released immediately into your electronic medical record. You may view this report before your referring provider. If you have questions, please contact your health care provider. HISTORY: Right shoulder pain. TECHNIQUE: CT right shoulder without contrast. COMPARISON: None. FINDINGS: No fracture dislocation. Mild degenerative changes of the glenohumeral joint. Moderate degenerative changes of the AC joint. No os acromiale. Type 2 acromial morphology. No subacromial enthesophyte. Acromiohumeral interval measures 9 mm. Subcortical cyst-like changes in the greater tuberosity of the humerus. No suspicious lytic or blastic bone lesions. No rotator cuff muscle atrophy. No deltoid muscle atrophy. No enlarged right axillary lymph nodes. Patchy ground-glass opacities and mild volume loss in the right upper lobe and superior segment of the right lower lobe. IMPRESSION: 1. No acute findings at the shoulder. 2. Mild degenerative changes of the glenohumeral joint. 3. Moderate degenerative changes of the AC joint. 4. Patchy ground-glass opacities in the right lung may be infectious or inflammatory. Please note that all CT scans at this facility use dose modulation, iterative reconstruction, and/or weight-based dosing when appropriate to reduce radiation dose to as low as reasonably achievable. Dictated by Dwayne Edwards MD @ 04/11/2023 9:24:42 AM (Electronically Signed)
--- NOTE | 2023-04-08 20:06 | CRLHL7_ITS ---
For Patients: As a result of the Century Cures Act, medical imaging exams and procedure reports are released immediately into your electronic medical record. You may view this report before your referring provider. If you have questions, please contact your health care provider. INDICATION: INDICATION: INC PAIN. RIGHT SHOULDER. FEVER CT CHEST WITHOUT CONTRAST TECHNIQUE: Multidetector CT imaging was performed through the chest following intravenous contrast administration. Coronal and sagittal reconstructions were generated. COMPARISON: None. FINDINGS: Lungs and airways: Patchy, micronodular, and tree-in-bud infiltrates in both lungs, worse on the left than the right, likely representing pneumonia. Central airways are patent. Pleura and pleural spaces: No pleural effusions or pneumothorax. Heart and mediastinum: Normal heart size. No significant pericardial effusion. No pathologically enlarged mediastinal lymph nodes. Vascular structures: Normal caliber thoracic aorta. Mild coronary artery calcifications. Chest wall and axillae: No mass or axillary lymphadenopathy. Osseous structures: Mild spinal degenerative changes. No acute fractures identified. Upper abdomen: Unremarkable. IMPRESSION: Bilateral patchy, micronodular, and tree-in-bud pulmonary infiltrates, likely representing pneumonia. BLU SALAZAR MD [employer] Dictated by Florencio Salazar MD @ 04/08/2023 8:53:23 PM Please note that all CT scans at this facility use dose modulation, iterative reconstruction, and/or weight-based dosing when appropriate to reduce radiation dose to as low as reasonably achievable. Dictated by: Florencio Salazar MD @ 04/08/2023 20:56:07 (Electronically Signed)
[2023-04-08] MEDS: cefTRIAXone 1 GM in 0.9 % SODIUM CHLORIDE Mini-bag 100 ML IVPB (21:43)
[2023-04-08] MEDS: AZITHROMYCIN 500 MG in 0.9 % SODIUM CHLORIDE 250 ml 250 ML 255 MG IVPB (22:26)
--- NOTE | 2023-04-08 23:19 | ED.NURSE ---
nurse to nurse report gave to aníbal
[2023-04-09] VITALS (13 sets, daily range): BP systolic 97–156; BP diastolic 53–69; PULSE 53–100; RESP 16–20; TEMP 36.4–39.4; O2SAT 95–99; BMI 19.6
--- NOTE | 2023-04-09 | P.IMCN_ITS ---
Date of Consult Consult date: 04/09/23 Primary Care Provider: Kush Huntley MD Consult Narrative Narrative: [facility] Hospitalist ADMISSION SUPPORT NOTE eHospitalist was contacted by Dr. Salcedo with request of admission support. Chief complaint: Neck pain HPI: The history was taken from the patient as well as his spouse was present at bedside and assist with history gathering. He reports that on of last week he woke up with right shoulder pain. On Tuesday he went to the emergency department and was evaluated with no acute findings but was referred to orthopedics for the following Tuesday. He was seen by orthopedics and was thought to have a frozen shoulder was also seen by dermatology around that same time. He reports that in addition to the right shoulder pain he now has developed some neck spasms on the right side of his neck and so that brought him in. He has had subjective chills and also complained of some nausea today. He denies shortness of breath or cough. He does notice over the past few days urinary dribbling that seems to occur when he is attempting to urinate. With work-up done in the ED he was found to have pneumonia and was started on antibiotics. 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) Boil ?L02.92 - Furuncle, unspecified (ICD-10) Lupus ?M32.9 - Systemic lupus erythematosus, unspecified (ICD-10) Social History Smoking Status: Never smoker Do you use any of these nicotine containing products: None Second hand tobacco smoke exposure: No How often do you have a drink containing alcohol: 4 or more times a week How many standard drinks containing alcohol do you have on a typical day: 1 or 2 How often do you have six or more drinks on one occasion: Never AUDIT-C Alcohol total score: 4 Non-prescribed substance use: denies use Little interest or pleasure in doing things: several days Feeling down, depressed, or hopeless: several days service: No Meds Home Medications and Allergies Home Medications Medication Instructions Recorded Confirmed Type acetaminophen 500 mg tablet 500 mg PO Q6H PRN 04/05/23 04/05/23 History (Tylenol Extra Strength) Allergies Allergy/AdvReac Type Severity Reaction Status Date / Time No Known Drug Allergies Allergy Verified 04/05/23 11:22 Exam Narrative: Exam Narrative: Exam (performed via interactive video with assistance of bedside nurse): General: Alert, cooperative, no acute distress HEENT: Oral mucosa pink and moist without erythema, fair dentition Lungs: Clear to auscultation bilaterally without crackle or wheeze CV: Regular rate and rhythm without loud murmur rub or gallop Ext: No pitting edema noted Neuro: Alert, oriented x 3. CN III -VII, XI, XII grossly intact, moves all extremities without any significant focal deficit appreciated by nurse Musculoskeletal: Limited range of movement of the right shoulder secondary to pain Const: Vital Signs, click to edit/add: Vital Signs - 24 hr 04/08/23 17:00 04/08/23 17:18 04/08/23 17:27 Temperature 101.2 F H Pulse Rate 72 73 Pulse Rate [Pulse Oximeter] 89 Respiratory Rate 18 Blood Pressure 128/66 Blood Pressure [Le ft Upper Arm] 124/65 Pulse Oximetry 96 97 97 Oxygen Delivery Me thod Room Air 04/08/23 17:29 04/08/23 17:30 04/08/23 17:31 Temperature Pulse Rate 76 75 Pulse Rate [Pulse Oximeter] Respiratory Rate Blood Pressure 118/65 Blood Pressure [Le ft Upper Arm] Pulse Oximetry 96 96 96 Oxygen Delivery Me thod Room Air 04/08/23 18:00 04/08/23 18:19 Temperature 100.9 F H Pulse Rate 83 Pulse Rate [Pulse Oximeter] Respiratory Rate Blood Pressure Blood Pressure [Le ft Upper Arm] Pulse Oximetry 97 Oxygen Delivery Me thod Labs Labs: Short CBC 04/08/23 Range/Units 18:05 WBC 18.94 H (4.50-11.00) K/uL Hgb 11.7 L (13.5-17.5) gm/dL Hct 35.8 L (37.0-53.0) % Plt Count 310 (140-440) K/uL BMP 04/08/23 18:05 Sodium 129 L Potassium 3.6 Chloride 96 Carbon Dioxide 27 BUN 12 Creatinine 0.6 Glucose 99 Calcium 8.4 Cardiac Enzymes 04/08/23 Range/Units 18:05 Total Creatine Kinase < 20 L (54-186) U/L Liver Function 04/08/23 Range/Units 18:05 Total Bilirubin 0.7 (0.1-1.5) mg/dL AST 28 (12-35) U/L ALT 26 (4-50) U/L Alkaline Phosphatase 79 (40-150) U/L Albumin 3.2 L (3.3-5.0) g/dL Urine 04/08/23 Range/Units 17:07 Urine Color Yellow (Yellow) Urine Appearance Clear (Clear) Urine pH 8.5 (5.0-8.5) Ur Specific [place] 1.020 (1.000-1.030) Urine Protein Negative (Negative) Urine Glucose (UA) Negative (Negative) Assessment and Plan Assessment and plan (1) Pneumonia: Status: Acute Plan Recent lab/CT scan of chest: Reviewed see EMR for details Assessment and Plan: 1. Pneumonia-continue Rocephin and azithromycin. If leukocytosis worsens or patient's condition worsens then broaden antibiotics given immunocompromise state. Check urine for strep and Legionella antigen. 2. Right shoulder pain-continue tramadol. Trial of Flexeril 3. Leukocytosis-secondary to #1 as well as likely a component of the fact that the patient is on prednisone 4. Lupus-continue prednisone. Pharmacy to verify what dose the patient was on as he is on a taper. He has methotrexate that scheduled to start tomorrow however given his current condition and the fact that this is a new medication will leave for rounding provider to discuss with dermatology whether this initiation can be deferred. 5. Hyponatremia-continue IV fluids 6. DVT prophylaxis-Lovenox 7. CODE STATUS full code discussed with patient Chart review was performed as well as evaluation of the patient via video. Thank you for involving ehospitalist. Please contact [phone] if further assistance is needed.
[2023-04-09] MEDS: ACETAMINOPHEN 325 MG TABLET 650 MG PO ×3 (01:15→19:16)
[2023-04-09] MEDS: TRAMADOL HCL 50 MG TABLET PO ×2 (01:52→09:29)
[2023-04-09] MEDS: 0.9 % SODIUM CHLORIDE 1000 ml 1,000 ML 125 ML IV ×2 (02:09→11:02)
[2023-04-09] MEDS: IBUPROFEN 600 MG TABLET PO (03:34)
[2023-04-09] MEDS: CYCLOBENZAPRINE HCL 10 MG TABLET PO ×2 (03:34→09:29)
--- NOTE | 2023-04-09 06:08 | PC.NURSE ---
Pt pleasant and cooperative, occasional confusion which states is new to last 7-8 days. Pt denies N/V, cough, SOB. Pt complains of chills and fatigue. Fever treated with Tylenol and 1 time order of Ibuprofen, see MAR, with relief. SBA to BR. Pt states dribbling due to urgency with voiding, new to last 7-8 days. Pt complains of right neck/shoulder pain, denies any falls or trauma. at bedside entire night.
[2023-04-09 07:18] LABS: Hematocrit 34.7 % (37.0-53.0); Hemoglobin* 11.6 gm/dL (13.5-17.5); Immature Granulocytes Pct Auto 0.5 %; Lymphocytes Percent Auto 4.4 % (20-44); Mean Corpuscular HGB Conc 33 gm/dL (32-36); Mean Corpuscular Hemoglobin 28 pg (26-34); Mean Corpuscular Volume 85 fL (80-100); Monocytes Percent Auto 12.7 % (0.0-11.0); Neutrophils Percent Auto 82.4 % (42.0-72.0); Platelet Count* 287 K/uL (140-440); RDW Coefficient of Variation % 13.4 % (11.5-15.5); Red Blood Count 4.09 m/uL (4.30-5.90); White Blood Count* 20.66 K/uL (4.50-11.00)
[2023-04-09 07:40] LABS: Albumin* 2.9 g/dL (3.3-5.0); Chloride* 98 mmol/L (96-114)
[2023-04-09 07:41] LABS: Potassium* 3.7 mmol/L (3.6-5.1); Sodium* 131 mmol/L (135-149)
[2023-04-09 07:43] LABS: Alkaline Phosphatase* 77 U/L (40-150); Aspartate Amino Transferase* 27 U/L (12-35); Bilirubin Total* 0.6 mg/dL (0.1-1.5); Blood Urea Nitrogen* 13 mg/dL (7-30); Carbon Dioxide* 27 mmol/L (20-32); Creatinine* 0.7 mg/dL (0.5-1.5); Est. Creatinine Clearance* 62.77; Estimated Glomerular Filt Rate 101 ml/min
[2023-04-09 07:44] LABS: Alanine Aminotransferase* 25 U/L (4-50); Glucose* 97 mg/dL (60-115)
[2023-04-09 08:00] LABS: Slide Review Acceptable Review (Acceptable); Slide Review Reflex Yes
[2023-04-09] MEDS: predniSONE 20 MG TABLET 40 MG PO (10:13)
--- NOTE | 2023-04-09 13:54 | P.IMHP_ITS ---
Hospitalist- H&P: HPI History of Present Illness Date Seen: 04/09/23 Chief complaint: Fever Narrative: Toi Gómez is a 67 year old male admitted to the hospital with 1 day history of fever and 6 day history of right shoulder pain. Patient reports that last Tuesday he had onset of right shoulder pain. Evaluation to time suggesting possible right rotator cuff injury or adhesive capsulitis. He is not having any fever at that time although may have had some chills. He was not otherwise feeling significant symptoms of illness. Possibly had a fever 2 days prior to admission and definitely had a fever on the day of admission, yesterday. He has had a slight cough. He is not aware of dyspnea. In the emergency department he was found to have bilateral infiltrates with a tree in bud morphology on chest CT. In July or August 2022 he developed a skin rash. 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 He was started on hydroxychloroquine which he poorly tolerated. It was discontinued. Two weeks ago he was started on prednisone. Prednisone dose was 60 mg daily for a week followed by 40 mg daily for a week. He is been on that dose for approximately 5 days. He reports the rash is much better. He is being considered for methotrexate therapy. Reports feeling much better this morning compared to yesterday Review of Systems Narrative: Patient reports that other than his several months of rash, 6 days of right shoulder pain, fever and chills for 1-3 days, right neck pain for the last couple days he has been feeling well. He has had minimal cough. No shortness of breath. No chest pain or abdominal pain. He has been eating normally. No bowel problems. He has had some urinary dribbling and urinary hesitancy with a slow stream recently. 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 Does not smoke. No recreational drug use. Occasional alcohol use. Code status is full. 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 School has been out for the last few weeks. He lives in a house with a pet bird, Harris. No recent travel. No recent exposures except as noted above What is your current living situation: I presently have a place to live Problems where you live: no known problems Problems where you live details: none In the past 12 months, utilities in danger of being shut off: no In the past 12 mos, have been you worried that your food would run out before you had money to buy more?: never true In the past 12 mos, the food you bought just didn't last and you didn't have money to buy more?: never true Highest level of school completed/degree received: Master's degree Smoking Status: Never smoker Do you use any of these nicotine containing products: None Second hand tobacco smoke exposure: No How often do you have a drink containing alcohol: 2-3 times a week How many standard drinks containing alcohol do you have on a typical day: 1 or 2 How often do you have six or more drinks on one occasion: Never AUDIT-C Alcohol total score: 3 Non-prescribed substance use: denies use Caffeine: Yes (2 cups of coffee) How often does anyone, including family, friends and others, physically hurt you : How often does anyone, including family, friends and others, insult or talk down to you: How often does anyone, including family, friends and others, threaten you with harm: How often does anyone, including family, friends and others, scream or curse at you: Little interest or pleasure in doing things: several days Feeling down, depressed, or hopeless: several days Gender Identity: male service: No Meds Home Medications and Allergies Home Medications Medication Instructions Recorded Confirmed Type acetaminophen 500 mg tablet 500 mg PO Q6H PRN 04/05/23 04/09/23 History (Tylenol Extra Strength) prednisone 20 mg tablet 20 - 60 mg PO DAILY 04/09/23 04/09/23 History tramadol 50 mg tablet 50 mg PO QHS PRN pain 04/09/23 04/09/23 History Home Medication Comments: Prednisone taper: 60 mg daily for 1 week then 40 mg daily for 1 week then 20 mg daily for 1 week. Allergies Allergy/AdvReac Type Severity Reaction Status Date / Time No Known Drug Allergies Allergy Verified 04/05/23 11:22 Exam Narrative: Exam Narrative: He is alert and appears in no distress. Speech is normal. He is oriented to his circumstances. Eyes are normal. Oropharynx is normal. Neck is supple without mass or adenopathy. Respirations are clear to auscultation. Good air exchange all lung frey. No wheezing rales rhonchi. Cardiovascular: S1, S2, regular rate and rhythm. No murmur gallop or rub. Abdomen: Bowel sounds active. Abdomen is soft without tenderness or mass. External genitalia normal. Extremities without edema. Good peripheral pulses. Extremities are slightly cool with slightly sluggish capillary refill. Skin is notable for a diffuse net like reticular erythema over chest, back, arms and legs. Limited range of motion the neck secondary to pain on the right side of the neck. No obvious trauma or deformity. Range of motion in the shoulders quite limited. He can actively abduct the shoulder and forward flex the shoulder to 45?. Passively he tolerates movement to almost 90? of abduction and forward flexion. He poorly tolerates internal rotation in flexion. With difficulty can reach behind his back with his right upper extremity. Significant weakness with testing internal external rotation and abduction on the right shoulder Const: Vital Signs, click to edit/add: Vital Signs - 24 hr 04/08/23 17:00 04/08/23 17:18 04/08/23 17:27 Temperature 101.2 F H Pulse Rate 72 73 Pulse Rate [Pulse Oximeter] 89 Respiratory Rate 18 Blood Pressure 128/66 Blood Pressure [Le ft Upper Arm] 124/65 Blood Pressure [Ri ght Arm] Pulse Oximetry 96 97 97 Oxygen Delivery Me thod Room Air 04/08/23 17:29 04/08/23 17:30 04/08/23 17:31 Temperature Pulse Rate 76 75 Pulse Rate [Pulse Oximeter] Respiratory Rate Blood Pressure 118/65 Blood Pressure [Le ft Upper Arm] Blood Pressure [Ri ght Arm] Pulse Oximetry 96 96 96 Oxygen Delivery Me thod Room Air 04/08/23 18:00 04/08/23 18:19 04/09/23 00:52 Temperature 100.9 F H 99.5 F Pulse Rate 83 Pulse Rate [Pulse Oximeter] Respiratory Rate 20 Blood Pressure Blood Pressure [Le ft Upper Arm] Blood Pressure [Ri ght Arm] 156/69 H Pulse Oximetry 97 97 Oxygen Delivery Me thod Room Air 04/09/23 01:04 04/09/23 01:15 04/09/23 03:00 Temperature 100.1 F H 102.9 F H Pulse Rate Pulse Rate [Pulse Oximeter] 82 Respiratory Rate 20 20 Blood Pressure Blood Pressure [Le ft Upper Arm] Blood Pressure [Ri ght Arm] 132/58 L Pulse Oximetry 97 95 Oxygen Delivery Me thod Room Air Room Air 04/09/23 03:34 04/09/23 05:44 04/09/23 05:44 Temperature 102.9 F H 98.2 F 98.2 F Pulse Rate Pulse Rate [Pulse Oximeter] Respiratory Rate Blood Pressure Blood Pressure [Le ft Upper Arm] Blood Pressure [Ri ght Arm] Pulse Oximetry Oxygen Delivery Me thod Documenting provider has reviewed patient's vital signs: yes Hospitalist - H&P: Result Labs Labs: Short CBC 04/08/23 04/09/23 Range/Units 18:05 06:42 WBC 18.94 H 20.66 H (4.50-11.00) K/uL Hgb 11.7 L 11.6 L (13.5-17.5) gm/dL Hct 35.8 L 34.7 L (37.0-53.0) % Plt Count 310 287 (140-440) K/uL BMP 04/08/23 04/09/23 18:05 06:42 Sodium 129 L 131 L Potassium 3.6 3.7 Chloride 96 98 Carbon Dioxide 27 27 BUN 12 13 Creatinine 0.6 0.7 Glucose 99 97 Calcium 8.4 8.0 L Cardiac Enzymes 04/08/23 Range/Units 18:05 Total Creatine Kinase < 20 L (54-186) U/L Liver Function 04/08/23 04/09/23 Range/Units 18:05 06:42 Total Bilirubin 0.7 0.6 (0.1-1.5) mg/dL AST 28 27 (12-35) U/L ALT 26 25 (4-50) U/L Alkaline Phosphatase 79 77 (40-150) U/L Albumin 3.2 L 2.9 L (3.3-5.0) g/dL Urine 04/08/23 Range/Units 17:07 Urine Color Yellow (Yellow) Urine Appearance Clear (Clear) Urine pH 8.5 (5.0-8.5) Ur Specific [place] 1.020 (1.000-1.030) Urine Protein Negative (Negative) Urine Glucose (UA) Negative (Negative) Imaging CT scan - chest: Radiologist's impression: CT CHEST WITHOUT CONTRAST TECHNIQUE:? Multidetector CT imaging was performed through the chest following intravenous contrast administration.? Coronal and sagittal reconstructions were generated. COMPARISON:? None. FINDINGS: Lungs and airways:? Patchy, micronodular, and tree-in-bud infiltrates in both lungs, worse on the left than the right, likely representing pneumonia. Central airways are patent. Pleura and pleural spaces:? No pleural effusions or pneumothorax. Heart and mediastinum:? Normal heart size.? No significant pericardial effusion.? No pathologically enlarged mediastinal lymph nodes. Vascular structures: Normal caliber thoracic aorta. Mild coronary artery calcifications. Chest wall and axillae:? No mass or axillary lymphadenopathy. Osseous structures:? Mild spinal degenerative changes.? No acute fractures identified. Upper abdomen:? Unremarkable. IMPRESSION: Bilateral patchy, micronodular, and tree-in-bud pulmonary infiltrates, likely representing pneumonia. BLU SALAZAR MD Assessment and Plan Assessment and plan (1) Bacteremia: Problem comment: All four blood cultures positive for Gram-positive cocci within 12 to 18 hours. Add vancomycin Status: Acute (2) Pneumonia: Problem comment: CT chest shows bilateral diffuse tree in bud pattern of infiltrate. Treat for community-acquired pneumonia. Status: Acute (3) Cutaneous lupus erythematosus: Problem comment: Clinically improving on prednisone. Relationship to other symptoms at this time is uncertain Status: Acute (4) Neck pain on right side: Problem comment: Acute, associated with acute right shoulder pain. Association with lupus and bacteremia uncertain. Continue to monitor. May need MRI imaging of spine and shoulder Status: Acute (5) Immunosuppression due to chronic steroid use: Problem comment: Consider immunosuppression in evaluating and treating bacteremia and pneumonia. Status: Acute (6) Adrenal insufficiency due to corticosteroid withdrawal: Problem comment: He has been on higher dose prednisone for approximately 12 days. At this point will monitor and give stress dose steroids as needed. For now continue prednisone 40 mg daily Status: Acute (7) Urinary hesitancy: Problem comment: Probably due to BPH. Check bladder scan. Status: Acute Plan Patient is admitted to the hospital for evaluation monitoring of multiple medical problems. Primarily bacteremia and pneumonia with associated fever. Awaiting cultures to determine further evaluation and treatment. Continue treatment with ceftriaxone and azithromycin for community-acquired pneumonia as well as vancomycin for Gram-positive bacteremia. Continue prednisone 40 mg daily and stress dose steroids as needed. Consider complications of lupus and immunosuppression in ongoing evaluation and treatment. Total time spent today is 80 minutes, 50 minutes in coordination of care and discussing with patient and other providers ongoing evaluation management of fever, bacteremia and pneumonia and shoulder pain
--- NOTE | 2023-04-09 14:43 | PC.NURSE ---
Pt has slept throughout the day, I feel much better. Please see eMar for medications provided on day shift. Positive blood cultures. Eval per Dr. Foster. Pt received IV Vancomycin. Pt reported some shoulder discomfort that was relieved with tylenol, tramadol and flexeril. Declined offer of ice pack or heating pad for some neck stiffness. Afebrile. spent the night with patient. Report will be provided to oncoming shift RN.
[2023-04-09] MEDS: AZITHROMYCIN 250 MG TABLET 500 MG PO (15:38)
[2023-04-09] MEDS: SODIUM CHLORIDE 0.9 % (FLUSH) 10 ML SYRINGE 5 ML IVF (21:12)
[2023-04-09] MEDS: ENOXAPARIN 40 MG/0.4 ML INJ SUBCUT (21:12)
[2023-04-09] MEDS: cefTRIAXone 2 GM in 0.9 % SODIUM CHLORIDE Mini-bag 100 ML IVPB (21:13)
[2023-04-10 02:15] VITALS: BP 140/71; PULSE 81; RESP 20; TEMP 37; O2SAT 98
--- NOTE | 2023-04-10 04:59 | PC.NURSE ---
[id number]: Patient pleasant and cooperative and feeling better. at bedside and assisted patient with a shower this evening. Tylenol administered x1 for low-grade temp of 100.2. Known rash covers entire body d/t recent dx of Lupus. Patient notes improvement with rash since starting Prednisone. Independent in room. Increased appetite eating 100% of dinner.
[2023-04-10] MEDS: CYCLOBENZAPRINE HCL 10 MG TABLET PO (05:45)
[2023-04-10] MEDS: TRAMADOL HCL 50 MG TABLET PO (05:45)
[2023-04-10 07:35] VITALS: BP 138/77; PULSE 76; RESP 18; TEMP 37.4; O2SAT 97
[2023-04-10] MEDS: ACETAMINOPHEN 325 MG TABLET 650 MG PO (07:57)
[2023-04-10] MEDS: predniSONE 20 MG TABLET 40 MG PO (07:57)
[2023-04-10] MEDS: SODIUM CHLORIDE 0.9 % (FLUSH) 10 ML SYRINGE 5 ML IVF ×2 (10:25→21:05)
[2023-04-10] MEDS: 0.9 % SODIUM CHLORIDE 250 ml IV (10:25)
[2023-04-10 11:00] VITALS: BP 119/61; PULSE 73; RESP 18; TEMP 36.9; O2SAT 98
--- NOTE | 2023-04-10 14:00 | P.IMPN_ITS ---
Progress Note: A&P Assessment and plan (1) Bacteremia: Problem details: All four blood cultures positive for Gram-positive cocci within 12 to 18 hours. Now appears to be Staph aureus, coag positive. On vancomycin pending culture and sensitivity. Obtain MRI of the spine and right shoulder and echocardiogram. Daily blood cultures. Status: Acute (2) Pneumonia: Problem details: CT chest shows bilateral diffuse tree in bud pattern of infiltrate. Treat for community-acquired pneumonia. 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 Status: Acute (4) Neck pain on right side: Problem details: Acute, associated with acute right shoulder pain. Association with lupus and bacteremia uncertain. Continue to monitor. 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 Status: Acute (6) Adrenal insufficiency due to corticosteroid withdrawal: Problem details: He has been on higher dose prednisone for approximately 12 days. At this point will monitor and give stress dose steroids as needed. For now continue predniso ne 40 mg daily Status: Acute (7) Urinary hesitancy: Problem details: Probably due to BPH. Bladder scan shows no significant postvoid residual Status: Acute Plan Continue in hospital for ongoing evaluation management of bacteremia. Discussed with patient and his concerns over probability of Staph aureus bacteremia and identifying the source. Also indicated that this likely will require prolonged IV antibiotics. Discussed possibility of needing transfer for specialty care as well. Total time spent today is 50 minutes, 30 minutes in coordination of care and discussing with patient and ongoing management of bacteremia Subjective Date Seen: 04/10/23 Interval history: 67-year-old male admitted to the hospital with left neck and shoulder pain and fever. Diagnosed with bilateral pneumonia. Treated for community-acquired pneumonia with ceftriaxone and azithromycin. Yesterday 4 of 4 blood cultures turned positive. On vancomycin. Today they are showing probable Staph aureus. Patient reports feeling a little better today a little less pain in his shoulder and neck. No breathing problems. Reports feeling little stronger. Fever is better. Appetite is better. Exam Narrative: Exam Narrative: He is alert and appears in no distress. Oriented to circumstances. Neck with decreased painful range of motion, not substantially changed from yesterday. Right shoulder with decreased painful range of motion not substantially changed from yesterday. Palpation of the right shoulder does not show an obvious glenohumeral synovitis, redness or warmth or tenderness. Respirations are clear to auscultation without wheezing rales rhonchi. Cardiovascular: S1, S2, regular rate and rhythm. Abdomen is soft without tenderness. Skin reticular Erinn erythematous rash not substantially changed from yesterday. No significant open skin lesions ulcers draining wounds. Const: Vital Signs, click to edit/add: Vital Signs - 24 hr 04/09/23 15:39 04/09/23 19:00 04/09/23 19:16 Temperature 98.3 F 100.2 F H 100.2 F H Pulse Rate [Left A pical] Pulse Rate [Pulse Oximeter] 53 L 100 Respiratory Rate 18 20 Blood Pressure [Ri ght Arm] 111/53 L 123/61 Pulse Oximetry 99 96 Oxygen Delivery Me thod Room Air Room Air 04/09/23 21:12 04/09/23 22:02 04/10/23 02:15 Temperature 98.5 F 97.6 F 98.6 F Pulse Rate [Left A pical] Pulse Rate [Pulse Oximeter] 82 81 Respiratory Rate 16 20 Blood Pressure [Ri ght Arm] 110/61 140/71 H Pulse Oximetry 98 98 Oxygen Delivery Me thod Room Air Room Air 04/10/23 07:35 04/10/23 11:00 Temperature 99.4 F 98.5 F Pulse Rate [Left A pical] 76 73 Pulse Rate [Pulse Oximeter] 76 73 Respiratory Rate 18 18 Blood Pressure [Ri ght Arm] 138/77 119/61 Pulse Oximetry 97 98 Oxygen Delivery Me thod Room Air Room Air Documenting provider has reviewed patient's vital signs: yes
--- NOTE | 2023-04-10 14:24 | PC.NURSE ---
Pt up to recliner for bkfst. Pt's Nila present for am assessment & Dr. Foster's evaluation. IV Vanco infused. Prn tylenol provided once for temp 99.4, next temp check was 98.5. Pt rested between nsg interventions. Plan echocardiogram later this afternoon. In addition pt will have MRI of cervical spine, MRI of shoulder RT and MRI of thoracic spine tomorrow evening. MRI screening form completed. Report will be provided to oncoming shift.
[2023-04-10 15:22] LABS: Strep pneumoniae Ag, Urine Negative (Negative)
[2023-04-10] MEDS: AZITHROMYCIN 250 MG TABLET 500 MG PO (15:25)
[2023-04-10 15:30] VITALS: BP 120/67; PULSE 59; RESP 18; TEMP 36.6; O2SAT 100
--- NOTE | 2023-04-10 15:38 | PC.NURSE ---
Update sister Pat [phone] on pt's condition, teaching on sepsis.
[2023-04-10 19:00] VITALS: BP 116/72; PULSE 63; RESP 18; TEMP 36.7; O2SAT 98
[2023-04-10] MEDS: ENOXAPARIN 40 MG/0.4 ML INJ SUBCUT (21:05)
[2023-04-10] MEDS: cefTRIAXone 2 GM in 0.9 % SODIUM CHLORIDE Mini-bag 100 ML IVPB (21:05)
[2023-04-10 23:11] VITALS: BP 133/77; PULSE 66; RESP 16; TEMP 36.9; O2SAT 96
--- NOTE | 2023-04-10 23:16 | PC.NURSE ---
Shift [id number]- Patient reports feeling a little sore this afternoon to neck and shoulder, states this evening he had very little pain. Up independent in room. Small supper. Rash remains.
[2023-04-11 02:46] VITALS: BP 142/63; PULSE 56; RESP 16; TEMP 36.7; O2SAT 99
[2023-04-11 03:10] LABS: HIV 1/2/P24 Combo Screen* Negative (Negative)
[2023-04-11] MEDS: TRAMADOL HCL 50 MG TABLET PO (04:42)
[2023-04-11] MEDS: CYCLOBENZAPRINE HCL 10 MG TABLET PO (04:42)
--- NOTE | 2023-04-11 05:10 | PC.NURSE ---
[id number]: Patient pleasant and cooperative. Independent in room. Afebrile. PRN Flexeril and Tramadol for R. neck and shoulder stiffness/pain. Encouraged ambulation and PO intake.
[2023-04-11 08:55] VITALS: BP 139/60; PULSE 61; RESP 17; TEMP 36.8; O2SAT 99
[2023-04-11] MEDS: predniSONE 20 MG TABLET 40 MG PO (09:08)
[2023-04-11] MEDS: CEFAZOLIN 2 GM INJ IVP (09:09)
[2023-04-11 09:15] LABS: Basophils Percent Auto 0.1 % (0.0-3.0); Eosinophils Percent Auto 0.2 % (0.0-7.0); Hematocrit 32.8 % (37.0-53.0); Hemoglobin* 10.6 gm/dL (13.5-17.5); Immature Granulocytes Pct Auto 0.8 %; Lymphocytes Percent Auto 14.4 % (20-44); Mean Corpuscular HGB Conc 32 gm/dL (32-36); Mean Corpuscular Hemoglobin 28 pg (26-34); Mean Corpuscular Volume 87 fL (80-100); Monocytes Percent Auto 13.7 % (0.0-11.0); Neutrophils Percent Auto 70.8 % (42.0-72.0); Platelet Count* 267 K/uL (140-440); RDW Coefficient of Variation % 13.4 % (11.5-15.5); Red Blood Count 3.78 m/uL (4.30-5.90); White Blood Count* 11.94 K/uL (4.50-11.00)
[2023-04-11] MEDS: SODIUM CHLORIDE 0.9 % (FLUSH) 10 ML SYRINGE 5 ML IVF ×2 (09:15→21:12)
[2023-04-11 09:26] LABS: Slide Review Reflex No
[2023-04-11 09:32] LABS: C Reactive Protein* 13.8 mg/dL (0.5-1.0)
--- NOTE | 2023-04-11 09:34 | CRLHL7_ITS ---
For Patients: As a result of the Century Cures Act, medical imaging exams and procedure reports are released immediately into your electronic medical record. You may view this report before your referring provider. If you have questions, please contact your health care provider. INDICATION: Bacteremia. COMPARISON: MRI 07/01/2021. Technique Sagittal T1, T2, and STIR sequences. Axial T1 and T2 weighted sequences. Post gadolinium T1 weighted sequences FINDINGS: Degenerative retrolisthesis of L2 on L3, L3 on L4 on L4 on L5 measures approximately 5 mm. Otherwise, normal alignment. No fractures. No vertebral body loss of height. No ligamentous injury. No suspicious osseous lesions. Normal conus terminates at L1. No abnormal signal intensity or enhancement of the disc spaces. No discitis or osteomyelitis. No evidence of septic facet joints. L1-2: No spinal canal or neural foraminal narrowing. L2-3: Advanced disc degeneration. Modic type 1 endplate changes. Diffuse disc bulge eccentric to the left. Mild narrowing of spinal canal. No neural foraminal narrowing. L3-4: Advanced disc degeneration. Mixed Modic type 1 and 2 endplate changes. Diffuse disc bulge eccentric to the right. Moderate narrowing of spinal canal. Moderate right and mild left neural foraminal narrowing. Mild facet arthropathy. L4-5: Disc degeneration. Diffuse disc bulge. Nvab-ql-nfklyuum narrowing of spinal canal. Moderate severe right and mild left neural foraminal narrowing. Potential impingement of the exiting right L4 nerve root. Mild os arthropathy. L5-S1: No narrowing of spinal canal. Small 5 mm synovial cyst the right facet joint. Otherwise, no anjali impingement of the traversing S1 nerve roots. Moderate bilateral foraminal narrowing. Severe facet arthropathy. Degenerative changes of the SI joints. No retroperitoneal adenopathy. IMPRESSION: 1. No diskitis or osteomyelitis. 2. Degenerative retrolisthesis of L2 on L3, L3 on L4 and L4 on L5. Otherwise normal alignment. No fractures 3. Lumbar spondylosis. 4. At L2-3, mild narrowing of spinal canal 5. At L3-4, moderate narrowing of spinal canal. Moderate right and mild left neural foraminal narrowing. 6. At L4-5, mild to moderate narrowing of spinal canal. Moderate severe right neural foraminal narrowing. Potential impingement of the exiting right L4 nerve root 7. No spinal canal or neural foraminal narrowing at the remaining levels Dictated by Mauricio Boland MD @ 04/11/2023 7:36:04 PM (Electronically Signed)
--- NOTE | 2023-04-11 09:34 | CRLHL7_ITS ---
For Patients: As a result of the Cures Act, medical imaging exams and procedure reports are released immediately into your electronic medical record. You may view this report before your referring provider. If you have questions, please contact your health care provider. INDICATION: Bacteremia. COMPARISON: 04/08/2023. TECHNIQUE: Sagittal T1, T2, and STIR sequences. Axial T2/gradient sequences. Post gadolinium T1 weighted sequences. FINDINGS: Normal vertebral body facet alignment. No fractures. No vertebral body loss of height. No spondylolisthesis. No ligamentous injury. No suspicious osseous lesions. Normal cord signal. No intradural mass or lesion. Marrow edema of the articular processes of the right C4-5 facet joint may represent stress reaction or mild inflammation facet arthritis. No discitis or osteomyelitis in the cervical spine. No epidural mass or lesion. C1-2: No spinal canal narrowing. C2-3: No spinal canal or neural foraminal narrowing. C3-4: No spinal canal neural foraminal narrowing. C4-5: Disc generation posterior disc bulging disc osteophyte complex. Mild narrowing of spinal canal. No neural foraminal narrowing. C5-6: Disc degeneration posterior disc bulge or disc osteophyte complex. No narrowing of spinal canal. Moderate narrowing of the right neural foramen. Mild narrowing of the left neural foramen. C6-7: No spinal canal neural foraminal narrowing. C7-T1: No spinal canal or neural foraminal narrowing. IMPRESSION: 1. Normal alignment. No fractures 2. Normal cord signal. 3. Mild marrow edema of the articular processes of the right C4-5 facet joint may represent stress reaction or mild inflammation 4. No discitis or osteomyelitis. 5. Cervical spondylosis 6. At C4-5, mild narrowing of the spinal canal 7. At C5-6, moderate narrowing of the right neural foramen. Mild narrowing of the left neural foramina Dictated by Mauricio Boland MD @ 04/11/2023 7:33:10 PM (Electronically Signed)
--- NOTE | 2023-04-11 09:34 | CRLHL7_ITS ---
For Patients: As a result of the Century Cures Act, medical imaging exams and procedure reports are released immediately into your electronic medical record. You may view this report before your referring provider. If you have questions, please contact your health care provider. INDICATION: Shoulder pain. Bacteremia. COMPARISON: CT 08 April 2023. TECHNIQUE: Axial PD and T2, coronal T1, PD and STIR and sagittal PD and T2 precontrast sequences. 15 mL Dotarem gadolinium intravenous contrast with axial and coronal T1 fat-sat postcontrast images. FINDINGS: Complex fluid in the subacromial/subdeltoid bursa most conspicuously in the subcoracoid recess. Mild osteoarthritis AC joint. Mild osteoarthritis glenohumeral joint with fairly uniform high grade 2 to grade 3 thinning. No joint effusion. No inflammatory arthritis findings. No capsulitis. No osteomyelitis. No pathologic adenopathy. Heterogeneous intermediate signal tendinosis in the supraspinatus. No tear. Some tendinosis of the margins of the subscapularis without tear. IMPRESSION: Prominent subacromial/subdeltoid bursitis presumably infectious given the history. Fluid is not typical bland bursitis. Inflammatory etiologies in the differential. Consider sampling the fluid. Dictated by Patrice Nelson MD @ 04/11/2023 7:32:25 PM (Electronically Signed)
--- NOTE | 2023-04-11 09:34 | CRLHL7_ITS ---
For Patients: As a result of the Century Cures Act, medical imaging exams and procedure reports are released immediately into your electronic medical record. You may view this report before your referring provider. If you have questions, please contact your health care provider. INDICATION: Bacteremia. COMPARISON: CT chest 04/08/2023. TECHNIQUE: Sagittal T1, T2, and STIR sequences. Axial T2/gradient sequences. Post gadolinium 2 weighted sequences. FINDINGS: Normal vertebral body facet alignment. No fractures. No vertebral body loss of height. No spondylosis is. No evidence injury. Normal marrow signal. No suspicious osseous lesions. No abnormal signal intensity or enhancement involving the disc spaces or endplates of the thoracic spine. No discitis or osteomyelitis in the thoracic spine. Normal cord signal. No intradural mass or lesion. Mild thoracic spondylosis. T11-12: Disc degeneration posterior disc bulge. No narrowing of spinal canal. No neural foraminal narrowing. No spinal canal or neural foraminal narrowing at the remaining levels. Normal paraspinal soft tissues. Small left pleural effusion. Impression : 1. Normal alignment. No fractures 2. No diskitis or osteomyelitis in the thoracic spine 3. Normal cord signal. No intradural mass lesion. 4. Mild thoracic spondylosis 5. No spinal canal or neural foraminal narrowing at the remaining levels of the thoracic spine Dictated by Mauricio Boland MD @ 04/11/2023 7:25:51 PM (Electronically Signed)
[2023-04-11] MEDS: IBUPROFEN 400 MG TABLET PO (10:40)
[2023-04-11 11:03] VITALS: BMI 20.3
[2023-04-11 13:20] VITALS: BP 114/65; PULSE 81; RESP 16; TEMP 36.7; O2SAT 99
[2023-04-11] MEDS: AZITHROMYCIN 250 MG TABLET 500 MG PO (15:06)
--- NOTE | 2023-04-11 15:13 | P.IMPN_ITS ---
Progress Note: A&P Assessment and plan (1) MSSA bacteremia: Problem details: Blood cultures from yesterday still positive so ongoing daily cultures. Switch from vancomycin to cefazolin. Await MRI report for right shoulder and spine. Transthoracic echo is unremarkable. Status: Acute (2) Pneumonia: Problem details: CT chest shows bilateral diffuse tree in bud pattern of infiltrate. Treat for c ommunity-acquired pneumonia. 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 Taper prednisone as tolerated Status: Acute (4) Neck pain on right side: Problem details: Acute, associated with acute right shoulder pain. Association with lupus and bacteremia uncertain. Continue to monitor. 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 Status: Acute (6) Adrenal insufficiency due to corticosteroid withdrawal: Problem details: He has been on higher dose prednisone for approximately 12 days. At this point will monitor and give stress dose steroids as needed. For now continue prednisone 40 mg daily. Begin prednisone taper Status: Acute (7) Urinary hesitancy: Problem details: Probably due to BPH. Bladder scan shows no significant postvoid residual Status: Acute Plan Continue in hospital pending clearing of blood cultures, results of MRI. Time Spent With Patient Total time spent: Total time spent today is 40 minutes, 30 minutes in course care discussing with patient other providers ongoing evaluation management of MSSA bacteremia. Subjective Date Seen: 04/11/23 Interval history: 67-year-old male admitted to the hospital with left neck and shoulder pain and fever. Diagnosed with bilateral pneumonia. Treated for community-acquired pneumonia with ceftriaxone and azithromycin. Yesterday 4 of 4 blood cultures turned positive. On vancomycin. Today they are showing probable Staph aureus. Patient reports feeling a little better today a little less pain in his shoulder and neck. No breathing problems. Reports feeling little stronger. Fever is better. Appetite is better. Right shoulder is feeling much better he. His motion is shoulder is markedly improved. He has got a good appetite. Overnight his cultures have grown methicillin sensitive Staph aureus Exam Narrative: Exam Narrative: He is alert and appears in no distress. Head is normal. Neck is normal. Range of motion is neck is decreased though improved from yesterday. He can now rotate and flex his neck to 45?. Right shoulder examined he can now lift his arm up overhead and reach behind his back with mild pain. Mom range of motion is markedly improved compared to yesterday. Respirations are clear to auscultation. Cardiovascular: S1, S2, regular rate and rhythm. No murmur gallop or rub. Abdomen is soft without tenderness or mass. Extremities are normal. He has persistence of that reticular erythematous rash over his trunk and legs. Const: Vital Signs, click to edit/add: Vital Signs - 24 hr 04/10/23 15:30 04/10/23 19:00 04/10/23 23:11 Temperature 97.9 F 98.1 F 98.4 F Pulse Rate [Left A pical] 59 L 63 Pulse Rate [Pulse Oximeter] 66 Respiratory Rate 18 18 16 Blood Pressure [Ri ght Arm] 120/67 116/72 133/77 Pulse Oximetry 100 98 96 Oxygen Delivery Me thod Room Air Room Air Room Air 04/11/23 02:46 04/11/23 08:55 04/11/23 08:55 Temperature 98.1 F 98.2 F Pulse Rate [Left A pical] 56 L Pulse Rate [Pulse Oximeter] 61 61 Respiratory Rate 16 17 17 Blood Pressure [Ri ght Arm] 142/63 H 139/60 Pulse Oximetry 99 99 Oxygen Delivery Me thod Room Air Room Air 04/11/23 13:20 Temperature 98.1 F Pulse Rate [Left A pical] Pulse Rate [Pulse Oximeter] 81 Respiratory Rate 16 Blood Pressure [Ri ght Arm] 114/65 Pulse Oximetry 99 Oxygen Delivery Me thod Room Air Documenting provider has reviewed patient's vital signs: yes Labs Labs: Laboratory Results - last 24 hr 04/09/23 04/09/23 04/11/23 00:32 06:42 06:03 WBC 11.94 H RBC 3.78 L Hgb 10.6 L Hct 32.8 L MCV 87 MCH 28 MCHC 32 RDW Coeff of Kailash 13.4 Plt Count 267 Neut % (Auto) 70.8 Lymph % (Auto) 14.4 L [place] % (Auto) 13.7 H Eos % (Auto) 0.2 Baso % (Auto) 0.1 Neut # (Auto) 8.50 H Lymph # (Auto) 1.70 [place] # (Auto) 1.60 H Eos # (Auto) 0.00 Baso # (Auto) 0.00 C-Reactive Protein 13.8 H HIV 1&2 Ab/P24 Ag 4thGn Negative Ur L.pneumophila Ag Negative Ur Strep pneumoniae Ag Negative
[2023-04-11 15:35] VITALS: BP 118/72; PULSE 73; RESP 16; TEMP 36.7; O2SAT 98
[2023-04-11] MEDS: CEFAZOLIN 2 GM in 0.9 % SODIUM CHLORIDE Mini-bag 100 ML IVPB (18:35)
--- NOTE | 2023-04-11 18:41 | PC.NURSE ---
(Shift 15-17) Pt alert and oriented. Pt had no complaints of pain during shift. Pt up in room independently. Pt had MRI during shift (1530) . Pt returned at 1838. IV antibiotic started.
[2023-04-11 19:00] VITALS: BP 117/90; PULSE 65; RESP 16; TEMP 37; O2SAT 100
[2023-04-11] MEDS: ENOXAPARIN 40 MG/0.4 ML INJ SUBCUT (21:11)
[2023-04-11 23:00] VITALS: BP 137/76; PULSE 65; RESP 18; TEMP 36.6; O2SAT 100
[2023-04-12] MEDS: CEFAZOLIN 2 GM in 0.9 % SODIUM CHLORIDE Mini-bag 100 ML IVPB ×3 (02:19→17:07)
[2023-04-12] MEDS: CYCLOBENZAPRINE HCL 10 MG TABLET PO ×2 (02:25→23:46)
[2023-04-12] MEDS: TRAMADOL HCL 50 MG TABLET PO ×2 (02:26→23:46)
[2023-04-12 03:00] VITALS: BP 158/74; PULSE 57; RESP 18; TEMP 36.5; O2SAT 100
[2023-04-12] MEDS: ACETAMINOPHEN 325 MG TABLET 650 MG PO ×3 (04:02→23:49)
--- NOTE | 2023-04-12 06:04 | PC.NURSE ---
Pleasant 67 year old male with primary diagnosis of pneumonia with bacteremia. Denies any shortness of breath, cough or dyspnea. Bowel sounds active x 4 quadrants. Pain to right side of neck reported, Toi describes it as a cramping feeling. Attempted to use aqua-k pad and reposition for comfort. Interventions ineffective, patient received PRN tramadol and flexeril at 0230 with no noted relief at 0330. Patient then requested PRN tylenol. Independent with ambulation in room. Rash to bilateral arms and torso due to cutaneous lupus that was recently diagnosed. Patient denies itching at this time to rash.
[2023-04-12 06:31] LABS: Basophils Absolute Auto 0.01 K/uL (0.00-0.30); Basophils Percent Auto 0.1 % (0.0-3.0); Eosinophils Absolute Auto 0.01 K/uL (0.00-0.50); Eosinophils Percent Auto 0.1 % (0.0-7.0); Hemoglobin* 10.9 gm/dL (13.5-17.5); Immature Granulocytes Abs Auto 0.09 K/uL (0.00-0.30); Immature Granulocytes Pct Auto 0.8 %; Lymphocytes Percent Auto 18.5 % (20-44); Mean Corpuscular HGB Conc 33 gm/dL (32-36); Mean Corpuscular Hemoglobin 28 pg (26-34); Mean Corpuscular Volume 84 fL (80-100); Monocytes Percent Auto 10.7 % (0.0-11.0); Neutrophils Absolute Auto 7.56 K/uL (1.7-7.0); Neutrophils Percent Auto 69.8 % (42.0-72.0); Platelet Count* 290 K/uL (140-440); RDW Coefficient of Variation % 13.5 % (11.5-15.5); Red Blood Count 3.91 m/uL (4.30-5.90); White Blood Count* 10.84 K/uL (4.50-11.00)
[2023-04-12 06:33] LABS: Slide Review Reflex No
[2023-04-12 06:44] LABS: Chloride* 105 mmol/L (96-114); Potassium* 3.4 mmol/L (3.6-5.1); Sodium* 135 mmol/L (135-149)
[2023-04-12 06:46] LABS: Creatinine* 0.5 mg/dL (0.5-1.5); Est. Creatinine Clearance* 65.42; Estimated Glomerular Filt Rate 112 ml/min
[2023-04-12 06:47] LABS: Blood Urea Nitrogen* 13 mg/dL (7-30); Carbon Dioxide* 24 mmol/L (20-32); Glucose* 94 mg/dL (60-115)
[2023-04-12 06:50] LABS: C Reactive Protein* 6.8 mg/dL (0.5-1.0)
[2023-04-12 07:00] VITALS: BP 157/76; PULSE 57; RESP 18; TEMP 36.7; O2SAT 98
[2023-04-12] MEDS: 0.9 % SODIUM CHLORIDE 250 ml IV (08:48)
[2023-04-12] MEDS: predniSONE 10 MG TABLET 30 MG PO (08:48)
[2023-04-12 11:00] VITALS: BP 159/75; PULSE 58; RESP 18; TEMP 36.7; O2SAT 98
--- NOTE | 2023-04-12 11:14 | P.EN_ITS ---
Chart Event Note Date Seen: 04/12/23 Chart Event Note: 67-year-old previously healthy male seen in followup of hospitalization for fever and right shoulder pain. Subsequently found to have MSSA bacteremia and MRI showing subacromial subdeltoid bursitis. January 2023 seen in clinic for a rash. Referred to dermatology where he was diagnosed with cutaneous lupus. Started on hydroxychloroquine which he did not tolerate. Around March 29 he was started on prednisone 60 mg daily. 04/03/2023: Patient was generally feeling well until April 03 when he had onset of fairly severe right shoulder pain. There was no trauma and he had no fever at that time. He was seen in the emergency department with normal shoulder radiographs. Discharge for outpatient follow-up. Symptomatic treatment. 04/05/2023: Patient seen in the outpatient orthopedic clinic for ongoing right shoulder pain. Outpatient MRI ordered. 04/08/2023: Patient returns to the emergency department with right neck pain, fever, weakness and ongoing shoulder pain. Evaluation including chest CT showed bilateral pulmonary infiltrates with tree in bud configuration. He did not report significant respiratory symptoms such as dyspnea or cough. He was admitted to the hospital for treatment of community acquired pneumonia with a Zithromax and ceftriaxone. No significant travel or exposures. He does have a pet bird at home. 04/09/2023: Within 12-16 hours of admission 4 blood cultures growing Gram- positive cocci. Eventually cultured to MSSA. Started on vancomycin. Became afebrile within a day. 04/10/2023: Transthoracic echocardiogram is unremarkable. Blood culture from 04/10/23 AM growing Gram-positive cocci. Patient clinically improving with less pain and no fever. 04/11/2023: MRI of right shoulder shows prominent subacromial and subdeltoid bursitis suspicious for septic bursitis. MRI of cervical, thoracic, lumbar spine shows no apparent infection, diskitis, osteomyelitis or paraspinal abscess. Patient clinically improving. Range of motion in the right shoulder markedly improved. Pain in the neck and shoulder much improved. No fever. No respiratory illness symptoms. With cultures showing MSSA switched from vancomycin to cefazolin 2 g IV q.8 hours. 04/12/2023: Continues to feel well. No fever or respiratory illness. Right Shoulder pain and range of motion is much better. Still having some right sided neck pain. Blood culture from 04/11/2023 still negative at about 30 hours. Continuing to taper prednisone from 40 mg to 20 mg. Spoke to [facility] office at [facility]. Patient is arranged for outpatient follow-up next , April 21 at 10:30 a.m. with Dimitris Masters MD. phone number [phone]. Fax number [phone]. Office contact Marlene. Address [address] [place] [address], [address]
--- NOTE | 2023-04-12 12:00 | PM.IMPN1 ---
Progress Note: A&P Assessment and plan (1) MSSA bacteremia: Problem details: Blood cultures from yesterday negative but positive from 2 days ago. Switch from vancomycin to cefazolin. Whole Spine MRI is unremarkable. Transthoracic echo is unremarkable. Right shoulder MRI suspicious for septic bursitis. Ortho consult pending Status: Acute (2) Pneumonia: Problem details: CT chest shows bilateral diffuse tree in bud pattern of infiltrate. Treat for community-acquired pneumonia. Received a Zithromax in 500 mg daily for 3 days and ceftriaxone 1 g daily for 3 days. 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 Taper prednisone as tolerated Status: Acute (4) Neck pain on right side: Problem details: Acute, improving. associated with acute right shoulder pain. Association with lupus and bacteremia uncertain. Continue to monitor. 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 Status: Acute (6) Adrenal insufficiency due to corticosteroid withdrawal: Problem details: He has been on higher dose prednisone for approximately 12 days. At this point will monitor and give stress dose steroids as needed. Tapering prednisone to 20 mg daily Status: Acute (7) Urinary hesitancy: Problem details: Probably due to BPH. Bladder scan shows no significant postvoid residual Status: Acute (8) Subacromial bursitis of right shoulder joint: Problem details: Probably septic bursitis associated with MSSA bacteremia. Ortho consult pending Status: Acute Plan Continue in hospital pending clearing of blood cultures. Plan outpatient IV antibiotics pending outpatient infectious disease consult next week. Time Spent With Patient Total time spent: Total time spent today is 50 minutes, 40 minutes in coordination of care discussing with patient, and other providers ongoing evaluation and management of MSSA bacteremia and septic bursitis Subjective Date Seen: 04/12/23 Interval history: 67-year-old previously healthy male seen in followup of hospitalization for fever and right shoulder pain.? Subsequently found to have MSSA bacteremia and MRI showing subacromial subdeltoid bursitis. January 2023 seen in clinic for a rash.? Referred to dermatology where he was diagnosed with cutaneous lupus.? Started on hydroxychloroquine which he did not tolerate.? Around March 29 he was started on prednisone 60 mg daily. 04/03/2023:? Patient was generally feeling well until April 03 when he had onset of fairly severe right shoulder pain.? There was no trauma and he had no fever at that time.? He was seen in the emergency department with normal shoulder radiographs.? Discharge for outpatient follow-up.? Symptomatic treatment. 04/05/2023:? Patient seen in the outpatient orthopedic clinic for ongoing right shoulder pain.? Outpatient MRI ordered. 04/08/2023:? Patient returns to the emergency department with right neck pain, fever, weakness and ongoing shoulder pain.? Evaluation including chest CT showed bilateral pulmonary infiltrates with tree in bud configuration.? He did not report significant respiratory symptoms such as dyspnea or cough.? He was admitted to the hospital for treatment of community acquired pneumonia with a Zithromax and ceftriaxone.? No significant travel or exposures.? He does have a pet bird at home. 04/09/2023:? Within 12-16 hours of admission 4 blood cultures growing Gram-positive cocci.? Eventually cultured to MSSA.? Started on vancomycin.? Became afebrile within a day. 04/10/2023:? Transthoracic echocardiogram is unremarkable.? Blood culture from 04/10/23 AM growing Gram-positive cocci.? Patient clinically improving with less pain and no fever. 04/11/2023:? MRI of right shoulder shows prominent subacromial and subdeltoid bursitis suspicious for septic bursitis.? MRI of cervical, thoracic, lumbar spine shows no apparent infection, diskitis, osteomyelitis or paraspinal abscess.? Patient clinically improving.? Range of motion in the right shoulder markedly improved.? Pain in the neck and shoulder much improved.? No fever.? No respiratory illness symptoms.? With cultures showing MSSA switched from vancomycin to cefazolin 2 g IV q.8 hours. 04/12/2023:? Continues to feel well.? No fever or respiratory illness.? Right Shoulder pain and range of motion is much better.? Still having some right sided neck pain.? Blood culture from 04/11/2023 still negative at about 30 hours.? Continuing to taper prednisone from 40 mg to 20 mg. Ortho consult pending. Current plan is to continue IV cefazolin pending outpatient consultation next week. When blood cultures are negative at [address] a PICC line and arrange for outpatient IV antibiotics. Spoke to [facility] office at [facility].? Patient is arranged for outpatient follow-up next April 21 at 10:30 a.m. with Dimitris Masters MD. phone number [phone].? Fax number [phone]. Office contact Marlene.? Address [address] [facility], [address] Patient reports feeling fine. He has no new concerns today. Still having a little bit of right neck pain but otherwise no concerns. Exam Narrative: Exam Narrative: He is alert and appears in no distress. Cervical range of motion is modestly improved and mildly painful at the endpoints. Shoulder range of motion is almost back to normal on the right compared to the left. No significant clinical impingement on range of motion of the right shoulder. Respirations are clear to auscultation without wheezing rales or rhonchi. Cardiovascular: S1, S2, regular rate and rhythm without murmur gallop or rub. Skin continues to show reticular erythema on trunk arms and legs without significant change. Const: Vital Signs, click to edit/add: Vital Signs - 24 hr 04/11/23 13:20 04/11/23 15:35 04/11/23 19:00 Temperature 98.1 F 98.0 F 98.6 F Pulse Rate [Pulse Oximeter] 81 73 65 Respiratory Rate 16 16 16 Blood Pressure [Ri ght Arm] 114/65 118/72 117/90 H Pulse Oximetry 99 98 100 Oxygen Delivery Me thod Room Air Room Air Room Air 04/11/23 23:00 04/12/23 03:00 04/12/23 07:00 Temperature 97.9 F 97.7 F Pulse Rate [Pulse Oximeter] 65 57 L 57 L Respiratory Rate 18 18 18 Blood Pressure [Ri ght Arm] 137/76 158/74 H Pulse Oximetry 100 100 Oxygen Delivery Me thod Room Air Room Air 04/12/23 07:00 04/12/23 11:00 Temperature 98.0 F 98.1 F Pulse Rate [Pulse Oximeter] 57 L 58 L Respiratory Rate 18 18 Blood Pressure [Ri ght Arm] 157/76 H 159/75 H Pulse Oximetry 98 98 Oxygen Delivery Me thod Room Air Room Air Documenting provider has reviewed patient's vital signs: yes Labs Labs: Laboratory Results - last 24 hr 04/12/23 05:56 WBC 10.84 RBC 3.91 L Hgb 10.9 L Hct 33.0 L MCV 84 MCH 28 MCHC 33 RDW Coeff of Kailash 13.5 Plt Count 290 Neut % (Auto) 69.8 Lymph % (Auto) 18.5 L [place] % (Auto) 10.7 Eos % (Auto) 0.1 Baso % (Auto) 0.1 Neut # (Auto) 7.56 H Lymph # (Auto) 2.00 [place] # (Auto) 1.20 H Eos # (Auto) 0.01 Baso # (Auto) 0.01 Sodium 135 Potassium 3.4 L Chloride 105 Carbon Dioxide 24 BUN 13 Creatinine 0.5 Estimated Creat Clear 65.42 Estimated GFR 112 Glucose 94 Calcium 8.0 L C-Reactive Protein 6.8 H
[2023-04-12 15:00] VITALS: BP 137/66; PULSE 62; RESP 18; TEMP 36.9; O2SAT 99
--- NOTE | 2023-04-12 15:23 | PM.ORCN ---
History of Present Illness HPI Time Seen by Provider: 12:00 Date Seen: 04/12/23 Consult date: 04/12/23 Requesting physician: Ronaldo Foster Chief complaint: Fever Narrative: Toi is a very pleasant 67-year-old young man, admitted to the hospital with fever and right shoulder and neck pain turning the neck to the right on 04/09/2023. He was not able to range the shoulder due to pain initially. He initially took Tylenol for fever of 101.2?. He also took tramadol. 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 Blood cultures, x4 are positive for Gram-positive cocci he was switched from vancomycin to cefazolin for Staph aureus, MSSA. Over the last 24 hours he has made significant improvement in his symptoms. Today he feels well. No fever. Right shoulder pain and range of motion is significantly improved. His neck pain has resolved as well. He had MRI of the right shoulder. He will see Infectious Disease as an outpatient at [facility] on April 21. Review of Systems Narrative: Patient denies nausea, vomiting, fever, chills, chest pain, shortness of breath [facility] Medical History MSSA bacteremia ?R78.81 - Bacteremia (ICD-10) ?B95.61 - Methicillin susceptible Staphylococcus aureus infection as the cause of diseases classified elsewhere (ICD-10) Urinary hesitancy ?R39.11 - Hesitancy of micturition (ICD-10) Adrenal insufficiency due to corticosteroid withdrawal ?E27.3 - Drug-induced adrenocortical insufficiency (ICD-10) ?T38.0X5A - Adverse effect of glucocorticoids and synthetic analogues, initial encounter (ICD-10) Immunosuppression due to chronic steroid use ?D84.821 - Immunodeficiency due to drugs (ICD-10) ?T38.0X5A - Adverse effect of glucocorticoids and synthetic analogues, initial encounter (ICD-10) ?Z79.52 - halfway (current) use of systemic steroids (ICD-10) Cutaneous lupus erythematosus ?L93.2 - Other local lupus erythematosus (ICD-10) Boil ?L02.92 - Furuncle, unspecified (ICD-10) Lupus ?M32.9 - Systemic lupus erythematosus, unspecified (ICD-10) Social History Narrative: He is and is present with his in the hospital. Does not smoke. No recreational drug use. Occasional alcohol use. Code status is full. 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 School has been out for the last few weeks. He lives in a house with a pet bird, Harris. No recent travel. No recent exposures except as noted above What is your current living situation: I presently have a place to live Problems where you live: no known problems Problems where you live details: none In the past 12 months, utilities in danger of being shut off: no In the past 12 mos, have been you worried that your food would run out before you had money to buy more?: never true In the past 12 mos, the food you bought just didn't last and you didn't have money to buy more?: never true Highest level of school completed/degree received: Master's degree Smoking Status: Never smoker Do you use any of these nicotine containing products: None Second hand tobacco smoke exposure: No How often do you have a drink containing alcohol: 2-3 times a week How many standard drinks containing alcohol do you have on a typical day: 1 or 2 How often do you have six or more drinks on one occasion: Never AUDIT-C Alcohol total score: 3 Non-prescribed substance use: denies use Caffeine: Yes (2 cups of coffee) How often does anyone, including family, friends and others, physically hurt you: How often does anyone, including family, friends and others, insult or talk down to you: How often does anyone, including family, friends and others, threaten you with harm: How often does anyone, including family, friends and others, scream or curse at you: Little interest or pleasure in doing things: several days Feeling down, depressed, or hopeless: several days Gender Identity: male service: No Meds Home Medications and Allergies Home Medications Medication Instructions Recorded Confirmed Type acetaminophen 500 mg tablet 500 mg PO Q6H PRN 04/05/23 04/09/23 History (Tylenol Extra Strength) prednisone 20 mg tablet 20 - 60 mg PO DAILY 04/09/23 04/09/23 History tramadol 50 mg tablet 50 mg PO QHS PRN pain 04/09/23 04/09/23 History Allergies Allergy/AdvReac Type Severity Reaction Status Date / Time No Known Drug Allergies Allergy Verified 04/05/23 11:22 Ortho Exam Narrative Exam Narrative: Alert and oriented x3. Patient is in no acute distress. Converses without labored breathing. Hearing is grossly intact. Ambulates with a normal gait. Examination of the right shoulder shows no erythema, mild warmth, no ecchymosis, no edema. No edema of the right upper extremity. CMS is intact right upper extremity. Range of motion of the shoulder, active forward flexion 170, abduction 170, external rotation 50, internal rotation L1. Ranges the shoulder with ease. Elbow range of motion is normal. Wrist and finger range of motion is normal. I do not palpate a fluid collection about the shoulder. Nontender to palpation of the clavicle, AC joint, anterolateral shoulder, anterior shoulder, posterior shoulder, deltoid area, or entirety of right arm. Const Vital Signs, click to edit/add: Vital Signs - 24 hr 04/11/23 15:35 04/11/23 19:00 04/11/23 23:00 Temperature 98.0 F 98.6 F 97.9 F Pulse Rate [Pulse Oximeter] 73 65 65 Respiratory Rate 16 16 18 Blood Pressure [Right Arm] 118/72 117/90 H 137/76 Pulse Oximetry 98 100 100 Oxygen Delivery Method Room Air Room Air Room Air 04/12/23 03:00 04/12/23 07:00 04/12/23 07:00 Temperature 97.7 F 98.0 F Pulse Rate [Pulse Oximeter] 57 L 57 L 57 L Respiratory Rate 18 18 18 Blood Pressure [Right Arm] 158/74 H 157/76 H Pulse Oximetry 100 98 Oxygen Delivery Method Room Air Room Air 04/12/23 11:00 Temperature 98.1 F Pulse Rate [Pulse Oximeter] 58 L Respiratory Rate 18 Blood Pressure [Right Arm] 159/75 H Pulse Oximetry 98 Oxygen Delivery Method Room Air Documenting provider has reviewed patient's vital signs: yes Results Labs Labs: Laboratory Results - last 48 hr 04/09/23 04/09/23 04/11/23 00:32 06:42 06:03 WBC 11.94 H RBC 3.78 L Hgb 10.6 L Hct 32.8 L MCV 87 MCH 28 MCHC 32 RDW Coeff of Kailash 13.4 Plt Count 267 Neut % (Auto) 70.8 Lymph % (Auto) 14.4 L [place] % (Auto) 13.7 H Eos % (Auto) 0.2 Baso % (Auto) 0.1 Neut # (Auto) 8.50 H Lymph # (Auto) 1.70 [place] # (Auto) 1.60 H Eos # (Auto) 0.00 Baso # (Auto) 0.00 Sodium Potassium Chloride Carbon Dioxide BUN Creatinine Estimated Creat Clear Estimated GFR Glucose Calcium C-Reactive Protein 13.8 H HIV 1&2 Ab/P24 Ag 4thGn Negative Ur L.pneumophila Ag Negative 04/12/23 05:56 WBC 10.84 RBC 3.91 L Hgb 10.9 L Hct 33.0 L MCV 84 MCH 28 MCHC 33 RDW Coeff of Kailash 13.5 Plt Count 290 Neut % (Auto) 69.8 Lymph % (Auto) 18.5 L [place] % (Auto) 10.7 Eos % (Auto) 0.1 Baso % (Auto) 0.1 Neut # (Auto) 7.56 H Lymph # (Auto) 2.00 [place] # (Auto) 1.20 H Eos # (Auto) 0.01 Baso # (Auto) 0.01 Sodium 135 Potassium 3.4 L Chloride 105 Carbon Dioxide 24 BUN 13 Creatinine 0.5 Estimated Creat Clear 65.42 Estimated GFR 112 Glucose 94 Calcium 8.0 L C-Reactive Protein 6.8 H HIV 1&2 Ab/P24 Ag 4thGn Ur L.pneumophila Ag Diagnostic results Additional Comments: MRI of the thoracic spine dated 04/11/2023 1. Normal alignment. No fractures 2. No diskitis or osteomyelitis in the thoracic spine 3. Normal cord signal. No intradural mass lesion. 4. Mild thoracic spondylosis 5. No spinal canal or neural foraminal narrowing at the remaining levels of the thoracic spine MRI of the right shoulder dated 04/11/2023 Prominent subacromial/subdeltoid bursitis presumably infectious given the history. Fluid is not typical bland bursitis. Inflammatory etiologies in the differential. Consider sampling the fluid. MRI of the lumbar spine dated 04/11/2023 1. No diskitis or osteomyelitis. 2. Degenerative retrolisthesis of L2 on L3, L3 on L4 and L4 on L5. Otherwise normal alignment. No fractures 3. Lumbar spondylosis. 4. At L2-3, mild narrowing of spinal canal 5. At L3-4, moderate narrowing of spinal canal. Moderate right and mild left neural foraminal narrowing. 6. At L4-5, mild to moderate narrowing of spinal canal. Moderate severe right neural foraminal narrowing. Potential impingement of the exiting right L4 nerve root 7. No spinal canal or neural foraminal narrowing at the remaining levels MRI of the cervical spine dated 04/11/2023 1. Normal alignment. No fractures 2. Normal cord signal. 3. Mild marrow edema of the articular processes of the right C4-5 facet joint may represent stress reaction or mild inflammation 4. No discitis or osteomyelitis. 5. Cervical spondylosis 6. At C4-5, mild narrowing of the spinal canal 7. At C5-6, moderate narrowing of the right neural foramen. Mild narrowing of the left neural foramina Right shoulder CT dated 04/08/2023 1. No acute findings at the shoulder. 2. Mild degenerative changes of the glenohumeral joint. 3. Moderate degenerative changes of the AC joint. 4. Patchy ground-glass opacities in the right lung may be infectious or inflammatory. Assessment and Plan Assessment and plan (1) MSSA bacteremia: Problem comment: Blood cultures from yesterday negative but positive from 2 days ago. Switch from vancomycin to cefazolin. Whole Spine MRI is unremarkable. Transthoracic echo is unremarkable. Right shoulder MRI suspicious for septic bursitis. Ortho consult pending Status: Acute Total time spent: Total time spent is greater than 50% in coordination of care (as documented) at patient's floor/unit and/or counseling patient: (2) Pneumonia: Problem comment: CT chest shows bilateral diffuse tree in bud pattern of infiltrate. Treat for community-acquired pneumonia. Received a Zithromax in 500 mg daily for 3 days and ceftriaxone 1 g daily for 3 days. Status: Acute Total time spent: Total time spent is greater than 50% in coordination of care (as documented) at patient's floor/unit and/or counseling patient: (3) Cutaneous lupus erythematosus: Problem comment: Clinically improving on prednisone. Taper prednisone as tolerated Status: Acute Total time spent: Total time spent is greater than 50% in coordination of care (as documented) at patient's floor/unit and/or counseling patient: (4) Neck pain on right side: Problem comment: Acute, improving. associated with acute right shoulder pain. Association with lupus and bacteremia uncertain. Continue to monitor. MRI shoulder and spine Status: Acute Total time spent: Total time spent is greater than 50% in coordination of care (as documented) at patient's floor/unit and/or counseling patient: (5) Immunosuppression due to chronic steroid use: Problem comment: Consider immunosuppression in evaluating and treating bacteremia and pneumonia. Status: Acute Total time spent: Total time spent is greater than 50% in coordination of care (as documented) at patient's floor/unit and/or counseling patient: (6) Adrenal insufficiency due to corticosteroid withdrawal: Problem comment: He has been on higher dose prednisone for approximately 12 days. At this point will monitor and give stress dose steroids as needed. Tapering prednisone to 20 mg daily Status: Acute Total time spent: Total time spent is greater than 50% in coordination of care (as documented) at patient's floor/unit and/or counseling patient: (7) Urinary hesitancy: Problem comment: Probably due to BPH. Bladder scan shows no significant postvoid residual Status: Acute Total time spent: Total time spent is greater than 50% in coordination of care (as documented) at patient's floor/unit and/or counseling patient: (8) Subacromial bursitis of right shoulder joint: Status: Acute Assessment and Plan: Patient's history and physical exam and MRIs and CTs are reviewed with Dr. Banuelos and Dr. Winston. Fluid collection right shoulder bursa would be difficult to aspirate any fluid from the bursa. Both doctors and myself agree that he has seen drastic improvements since he arrived at the hospital. He is able to easily range the right shoulder. Pain has ceased, he has no pain in the neck at this time either. For now will watch his symptoms, continue IV antibiotics. He will see Infectious Disease next week. If right shoulder symptoms continue he can be seen at [place] [facility] for the right shoulder, or return to [place]. It will be preferable for him to continue his care at [place] for the shoulder if he has further symptoms since infectious Disease will be caring for him there. Dr. Foster is made aware of Orthopedics plan. All are in agreement the plan. All questions were answered. Note, dictation performed with voice recognition, and as a result, wrong word or sound like substitutions may have occurred. There may be areas in the script that have gone on detected. Please consider this when interpreting information found in the chart. Total time spent: Total time spent is greater than 50% in coordination of care (as documented) at patient's floor/unit and/or counseling patient:
--- NOTE | 2023-04-12 18:56 | PC.NURSE ---
[id number]: Patient had a uneventful day. Patient reports pain to neck and shoulder has improved. Patient independent with ADLS. Patient with no cough, shortness or fevers today. Patient remained vitally stable. Patient sister, Elza, updated on patient condition. Patient with good appetite today. patient able to voice needs as needed.
[2023-04-12 19:00] VITALS: BP 132/68; PULSE 65; RESP 18; TEMP 36.4; O2SAT 100
[2023-04-12] MEDS: ENOXAPARIN 40 MG/0.4 ML INJ SUBCUT (21:05)
[2023-04-12] MEDS: SODIUM CHLORIDE 0.9 % (FLUSH) 10 ML SYRINGE 5 ML IVF (21:05)
[2023-04-13] MEDS: CEFAZOLIN 2 GM in 0.9 % SODIUM CHLORIDE Mini-bag 100 ML IVPB ×3 (01:12→16:37)
--- NOTE | 2023-04-13 06:01 | PC.NURSE ---
Pleasant 67 year old male, alert and oriented x 4. Reported right sided neck pain, pain was well managed with tramadol and flexeril. Patient slept well this shift, slept through mortgage or loan underwriter disconnecting IV infusion. Psych Specialist allowed patient to sleep due to reports of poor sleep over the last several days. Denies any cough or shortness of breath, breathing even and unlabored. Bowel sounds active x 4 quadrants.
[2023-04-13 06:44] LABS: Basophils Absolute Auto 0.01 K/uL (0.00-0.30); Basophils Percent Auto 0.1 % (0.0-3.0); Eosinophils Absolute Auto 0.02 K/uL (0.00-0.50); Eosinophils Percent Auto 0.2 % (0.0-7.0); Hematocrit 34.9 % (37.0-53.0); Hemoglobin* 11.3 gm/dL (13.5-17.5); Immature Granulocytes Abs Auto 0.25 K/uL (0.00-0.30); Immature Granulocytes Pct Auto 3.1 %; Lymphocytes Absolute Auto 2.46 K/uL (0.90-2.90); Lymphocytes Percent Auto 30.3 % (20-44); Mean Corpuscular HGB Conc 32 gm/dL (32-36); Mean Corpuscular Hemoglobin 28 pg (26-34); Mean Corpuscular Volume 85 fL (80-100); Monocytes Percent Auto 13.5 % (0.0-11.0); Neutrophils Absolute Auto 4.29 K/uL (1.7-7.0); Neutrophils Percent Auto 52.8 % (42.0-72.0); Platelet Count* 333 K/uL (140-440); RDW Coefficient of Variation % 13.4 % (11.5-15.5); Red Blood Count 4.09 m/uL (4.30-5.90); White Blood Count* 8.13 K/uL (4.50-11.00)
[2023-04-13 06:54] LABS: Slide Review Reflex No
[2023-04-13 07:14] LABS: C Reactive Protein* 4.5 mg/dL (0.5-1.0)
[2023-04-13 07:30] VITALS: BP 154/71; PULSE 57; RESP 18; TEMP 36.6; O2SAT 100
[2023-04-13] MEDS: CYCLOBENZAPRINE HCL 10 MG TABLET PO ×2 (07:31→23:16)
[2023-04-13] MEDS: predniSONE 10 MG TABLET 20 MG PO (08:49)
[2023-04-13] MEDS: ACETAMINOPHEN 325 MG TABLET 650 MG PO ×2 (08:49→18:07)
[2023-04-13] MEDS: SODIUM CHLORIDE 0.9 % (FLUSH) 10 ML SYRINGE 5 ML IVF ×2 (10:20→21:18)
[2023-04-13 11:30] VITALS: BP 123/57; PULSE 88; RESP 16; TEMP 36.7; O2SAT 98
--- NOTE | 2023-04-13 14:09 | PM.IMPN1 ---
Progress Note: A&P Assessment and plan (1) MSSA bacteremia: Problem details: Blood cultures now negative at 48 hours. Continue on Ancef 2 [address] PICC line and discharge tomorrow if cultures remain negative at 72 hours. Arrangements for outpatient antibiotics will be arranged. Follow-up with Infectious Disease next week Status: Acute (2) Pneumonia: Problem details: CT chest shows bilateral diffuse tree in bud pattern of infiltrate. Treat for community-acquired pneumonia. Received a Zithromax in 500 mg daily for 3 days and ceftriaxone 1 g daily for 3 days. Now on Ancef for MSSA bacteremia. Remains asymptomatic for respiratory illness Status: Acute (3) Cutaneous lupus erythematosus: Problem details: Clinically improving on prednisone. Taper prednisone as tolerated. Decreased from 60 mg daily to 40 mg daily and now 20 mg daily will need outpatient follow-up for management of cutaneous lupus. Dermatology appointment on April 26 scheduled Status: Acute (4) Neck pain on right side: Problem details: Acute, improving. associated with acute right shoulder pain. Association with lupus and bacteremia uncertain. Continue to monitor. 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 Status: Acute (6) Adrenal insufficiency due to corticosteroid withdrawal: Problem details: He has been on higher dose prednisone for approximately 12 days. At this point will monitor and give stress dose steroids as needed. Tapering prednisone to 20 mg daily Status: Acute (7) Urinary hesitancy: Problem details: Probably due to BPH. Bladder scan shows no significant postvoid residual Status: Acute (8) Subacromial bursitis of right shoulder joint: Problem details: Likely the source of MSSA bacteremia. Clinically much improved. Status: Acute Plan Continue in hospital for 1 more day. If blood cultures negative at [address] PICC line and discharge to home for outpatient antibiotics and outpatient follow-up of MSSA bacteremia in 1 week and cutaneous lupus in 2 weeks. Time Spent With Patient Total time spent: Total time spent today is 30 minutes, 20 minutes in coordination of care and discussing with patient and other providers ongoing evaluation and management of bacteremia Subjective Date Seen: 04/13/23 Interval history: 67-year-old previously healthy male seen in followup of hospitalization for fever and right shoulder pain.? Subsequently found to have MSSA bacteremia and MRI showing subacromial subdeltoid bursitis. January 2023 seen in clinic for a rash.? Referred to dermatology where he was diagnosed with cutaneous lupus.? Started on hydroxychloroquine which he did not tolerate.? Around March 29 he was started on prednisone 60 mg daily. 04/03/2023:? Patient was generally feeling well until April 03 when he had onset of fairly severe right shoulder pain.? There was no trauma and he had no fever at that time.? He was seen in the emergency department with normal shoulder radiographs.? Discharge for outpatient follow-up.? Symptomatic treatment. 04/05/2023:? Patient seen in the outpatient orthopedic clinic for ongoing right shoulder pain.? Outpatient MRI ordered. 04/08/2023:? Patient returns to the emergency department with right neck pain, fever, weakness and ongoing shoulder pain.? Evaluation including chest CT showed bilateral pulmonary infiltrates with tree in bud configuration.? He did not report significant respiratory symptoms such as dyspnea or cough.? He was admitted to the hospital for treatment of community acquired pneumonia with a Zithromax and ceftriaxone.? No significant travel or exposures.? He does have a pet bird at home. 04/09/2023:? Within 12-16 hours of admission 4 blood cultures growing Gram-positive cocci.? Eventually cultured to MSSA.? Started on vancomycin.? Became afebrile within a day. 04/10/2023:? Transthoracic echocardiogram is unremarkable.? Blood culture from 04/10/23 AM growing Gram-positive cocci.? Patient clinically improving with less pain and no fever. 04/11/2023:? MRI of right shoulder shows prominent subacromial and subdeltoid bursitis suspicious for septic bursitis.? MRI of cervical, thoracic, lumbar spine shows no apparent infection, diskitis, osteomyelitis or paraspinal abscess.? Patient clinically improving.? Range of motion in the right shoulder markedly improved.? Pain in the neck and shoulder much improved.? No fever.? No respiratory illness symptoms.? With cultures showing MSSA switched from vancomycin to cefazolin 2 g IV q.8 hours. 04/12/2023:? Continues to feel well.? No fever or respiratory illness.? Right Shoulder pain and range of motion is much better.? Still having some right sided neck pain.? Blood culture from 04/11/2023 still negative at about 30 hours.? Continuing to taper prednisone from 40 mg to 20 mg. Ortho consult felt they have minimal volume of subacromial fluid would be difficult to sample. No intervention since patient is clinically doing very well. 04/13/2023: Patient continues to feel quite well. No fever. Arm pain and motion is continuing to improve. Blood cultures now negative at 48 hours. Current plan is to continue IV cefazolin pending outpatient consultation next week. When blood cultures are negative at [address] a PICC line and arrange for outpatient IV antibiotics. Spoke to [facility] office at [facility].? Patient is arranged for outpatient follow-up next , April 21 at 10:30 a.m. with Dimitris Masters MD. phone number [phone].? Fax number [phone]. Office contact Marlene.? Address [facility], [address] Exam Narrative: Exam Narrative: He is alert and appears in no distress. Motion shoulders much better. No significant tenderness. Skin rash is unchanged. Const: Vital Signs, click to edit/add: Vital Signs - 24 hr 04/12/23 15:00 04/12/23 15:00 04/12/23 19:00 Temperature 98.5 F 97.6 F Pulse Rate [Pulse Oximeter] 62 62 65 Respiratory Rate 18 18 18 Blood Pressure [Ri ght Arm] 137/66 132/68 Pulse Oximetry 99 100 Oxygen Delivery Me thod Room Air Room Air 04/13/23 07:30 04/13/23 07:30 04/13/23 11:30 Temperature 97.8 F 98.0 F Pulse Rate [Pulse Oximeter] 57 L 57 L 88 Respiratory Rate 18 18 16 Blood Pressure [Ri ght Arm] 154/71 H 123/57 L Pulse Oximetry 100 98 Oxygen Delivery Me thod Room Air Room Air Documenting provider has reviewed patient's vital signs: yes Labs Labs: Laboratory Results - last 24 hr 04/13/23 06:31 WBC 8.13 RBC 4.09 L Hgb 11.3 L Hct 34.9 L MCV 85 MCH 28 MCHC 32 RDW Coeff of Kailash 13.4 Plt Count 333 Neut % (Auto) 52.8 Lymph % (Auto) 30.3 [place] % (Auto) 13.5 H Eos % (Auto) 0.2 Baso % (Auto) 0.1 Neut # (Auto) 4.29 Lymph # (Auto) 2.46 [place] # (Auto) 1.10 H Eos # (Auto) 0.02 Baso # (Auto) 0.01 C-Reactive Protein 4.5 H
--- NOTE | 2023-04-13 14:26 | PC.SOCIAL ---
Addendum entered by GIULIA Stokes 04/13/23 16:26: Pt is willing to do home infusion services. Phone call to [facility] at [phone]. Completed initial referral over the phone. [facility] will verify insurance information. Faxed facesheet and H&P to [facility] at [phone] and [phone]. Whitt will call back after verification is complete. Original Note: Met with pt in pt's room to discuss discharge plans. Informed pt of options for IV antibiotics SNF vs. going home and having home infusion services. Pt states that he does not want to go to SNF and further states he lives close to the hospital and is hopeful that he can come to the hospital for IV antibiotics as it would work better with his schedule. 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 Informed that this worker will follow up later this afternoon to see if pt has made a decision.
--- NOTE | 2023-04-13 14:55 | PC.NURSE ---
End of shift nursing note: Pt alert and oriented, pleasant and conversational. Vitals stable, on RA. Pt c/o 5-06/26 pain to neck, PRN Flexeril and Tylenol admin and pain improved to /, denies needing further PRN. Pt tolerating diet, oral fluids, voiding this shift, last BM last evening per pt. Wishes to shower this evening after goes home to get more clothing for pt, fresh linens prepared. Con't on IV abx, to patent L AC, saline locked after admin. at bedside this afternoon, pt and kang douglass, will meet with pt around [id number] today. Ind in room, amb w/o difficulty. Pt hoping to d/c tomorrow. Call light within reach, pt using appropriately.
[2023-04-13 15:00] VITALS: BP 136/68; PULSE 72; RESP 18; TEMP 36.6; O2SAT 98
[2023-04-13 19:00] VITALS: BP 141/67; PULSE 58; RESP 16; TEMP 37.1; O2SAT 99
--- NOTE | 2023-04-13 19:29 | PC.NURSE ---
End of Shift: Pt AO, independent in room, vs stable. Denies SOB, LS CTAB. Awaiting blood culture result, plan to place PICC tomorrow and possible discharge.
[2023-04-13] MEDS: ENOXAPARIN 40 MG/0.4 ML INJ SUBCUT (21:18)
[2023-04-13 23:00] VITALS: BP 160/74; PULSE 53; RESP 18; TEMP 36.7; O2SAT 98
[2023-04-13] MEDS: TRAMADOL HCL 50 MG TABLET PO (23:16)
[2023-04-14] MEDS: CEFAZOLIN 2 GM in 0.9 % SODIUM CHLORIDE Mini-bag 100 ML IVPB ×4 (01:25→21:07)
[2023-04-14] MEDS: ACETAMINOPHEN 325 MG TABLET 650 MG PO ×3 (01:31→20:28)
--- NOTE | 2023-04-14 02:10 | CRLHL7_ITS ---
For Patients: As a result of the Century Cures Act, medical imaging exams and procedure reports are released immediately into your electronic medical record. You may view this report before your referring provider. If you have questions, please contact your health care provider. INDICATION: Chest pain. TECHNIQUE: Chest 1 views. COMPARISON: CT chest 04/08/2023. FINDINGS/impression: Cardiovasculature and mediastinum: The tip of the PICC projects over the lower SVC. Heart size and vasculature are normal in caliber and appearance. Lungs and pleural spaces: Mild patchy airspace opacities in both lungs, left greater than right. No sign of infiltrate or mass. No sign of pleural effusion. No pneumothorax. Bones and soft tissues: No significant findings. Dictated by Jarrell Valerio MD @ 04/14/2023 1:58:46 PM (Electronically Signed)
[2023-04-14 05:24] LABS: Basophils Absolute Auto 0.02 K/uL (0.00-0.30); Basophils Percent Auto 0.2 % (0.0-3.0); Eosinophils Absolute Auto 0.02 K/uL (0.00-0.50); Eosinophils Percent Auto 0.2 % (0.0-7.0); Hemoglobin* 11.3 gm/dL (13.5-17.5); Immature Granulocytes Abs Auto 0.27 K/uL (0.00-0.30); Lymphocytes Absolute Auto 2.54 K/uL (0.90-2.90); Lymphocytes Percent Auto 28.5 % (20-44); Mean Corpuscular HGB Conc 32 gm/dL (32-36); Mean Corpuscular Hemoglobin 28 pg (26-34); Mean Corpuscular Volume 86 fL (80-100); Monocytes Percent Auto 13.3 % (0.0-11.0); Neutrophils Absolute Auto 4.87 K/uL (1.7-7.0); Neutrophils Percent Auto 54.8 % (42.0-72.0); Platelet Count* 328 K/uL (140-440); RDW Coefficient of Variation % 13.5 % (11.5-15.5); Red Blood Count 4.08 m/uL (4.30-5.90)
[2023-04-14 05:39] LABS: Slide Review Reflex No
[2023-04-14 05:50] LABS: C Reactive Protein* 3.2 mg/dL (0.5-1.0)
--- NOTE | 2023-04-14 05:56 | PC.NURSE ---
Alert and oriented x 4. Reports cramping and discomfort to right side of neck, PRN tramadol, flexeril and tylenol administered. Patient reports discomfort was tolerable after medications and he was able to sleep comfortably. Denies any cough or shortness of breath. Rash to bilateral upper extremities and torso continues, denies any discomfort at this time due to rash.
[2023-04-14 07:00] VITALS: BP 171/73; PULSE 55; RESP 20; TEMP 36.6; O2SAT 100
[2023-04-14] MEDS: predniSONE 10 MG TABLET 20 MG PO (07:36)
[2023-04-14] MEDS: TRAMADOL HCL 50 MG TABLET PO ×2 (07:39→20:28)
[2023-04-14] MEDS: SODIUM CHLORIDE 0.9 % (FLUSH) 10 ML SYRINGE 5 ML IVF (09:37)
--- NOTE | 2023-04-14 10:13 | P.DS_ITS ---
DS: Providers Provider Date Seen: 04/14/23 Date of admission: 04/09/23 08:15 Primary care physician: Kush Huntley MD Admitting Clinician: Dru Barrett MD Attending Physician on discharge: Ronaldo Foster MD Date of Discharge: 04/14/23 DS: Diagnosis Discharge Diagnosis (1) Subacromial bursitis of right shoulder joint: Status: Acute Problem details: Likely the source of MSSA bacteremia. Clinically much improved. (2) MSSA bacteremia: Status: Acute Problem details: Blood cultures now negative at 48 hours. Continue on Ancef [address] PICC line and discharge tomorrow if cultures remain negative at 72 hours. Arrangements for outpatient antibiotics will be arranged. Will set up for a total of 21 days of IV Ancef pending ID consult (through April 29). Follow-up with Infectious Disease consult next week. (3) Adrenal insufficiency due to corticosteroid withdrawal: Status: Acute Problem details: He has been on higher dose prednisone for approximately 12 days. At this point will monitor and give stress dose steroids as needed. Tapering prednisone to 10 mg daily pending outpatient follow up. (4) Immunosuppression due to chronic steroid use: Status: Acute Problem details: Consider immunosuppression in evaluating and treating bacteremia and pneumonia. (5) Neck pain on right side: Status: Acute Problem details: Acute, improving. associated with acute right shoulder pain. MRI of C-spine is unremarkable (6) Urinary hesitancy: Status: Acute Problem details: Probably due to BPH. Bladder scan shows no significant postvoid residual (7) Pneumonia: Status: Acute Problem details: CT chest shows bilateral diffuse tree in bud pattern of infiltrate. Treat for community-acquired pneumonia. Received a Zithromax in 500 mg daily for 3 days and ceftriaxone 1 g daily for 3 days. Now on Ancef for MSSA bacteremia. Remains asymptomatic for respiratory illness. (8) Cutaneous lupus erythematosus: Status: Acute Problem details: Clinically improving on prednisone. Taper prednisone as tolerated. Decreased from 60 mg daily to 40 mg daily and now 10 mg daily will need outpatient follow- up for management of cutaneous lupus. Dermatology appointment on April 26 scheduled DS: Summary Hospital Course Hospital Course: Interval history: 67-year-old previously healthy male seen in followup of hospitalization for fever and right shoulder pain.? Subsequently found to have MSSA bacteremia and MRI showing subacromial subdeltoid bursitis. January 2023 seen in clinic for a rash.? Referred to dermatology where he was diagnosed with cutaneous lupus.? Started on hydroxychloroquine which he did not tolerate.? Around March 29 he was started on prednisone 60 mg daily. 04/03/2023:? Patient was generally feeling well until April 03 when he had onset of fairly severe right shoulder pain.? There was no trauma and he had no fever at that time.? He was seen in the emergency department with normal shoulder radiographs.? Discharge for outpatient follow-up.? Symptomatic treatment. 04/05/2023:? Patient seen in the outpatient orthopedic clinic for ongoing right shoulder pain.? Outpatient MRI ordered. 04/08/2023:? Patient returns to the emergency department with right neck pain, fever, weakness and ongoing shoulder pain.? Evaluation including chest CT showed bilateral pulmonary infiltrates with tree in bud configuration.? He did not report significant respiratory symptoms such as dyspnea or cough.? He was admitted to the hospital for treatment of community acquired pneumonia with a Zithromax and ceftriaxone.? No significant travel or exposures.? He does have a pet bird at home. 04/09/2023:? Within 12-16 hours of admission 4 blood cultures growing Gram- positive cocci.? Eventually cultured to MSSA.? Started on vancomycin.? Became afebrile within a day. 04/10/2023:? Transthoracic echocardiogram is unremarkable.? Blood culture from 04/10/23 AM growing Gram-positive cocci.? Patient clinically improving with less pain and no fever. 04/11/2023:? MRI of right shoulder shows prominent subacromial and subdeltoid bursitis suspicious for septic bursitis.? MRI of cervical, thoracic, lumbar spine shows no apparent infection, diskitis, osteomyelitis or paraspinal abscess.? Patient clinically improving.? Range of motion in the right shoulder markedly improved.? Pain in the neck and shoulder much improved.? No fever.? No respiratory illness symptoms.? With cultures showing MSSA switched from vancomycin to cefazolin 2 g IV q.8 hours. 04/12/2023:? Continues to feel well.? No fever or respiratory illness.? Right Shoulder pain and range of motion is much better.? Still having some right sided neck pain.? Blood culture from 04/11/2023 still negative at about 30 hours.? Continuing to taper prednisone from 40 mg to 20 mg.? Ortho consult felt they have minimal volume of subacromial fluid would be difficult to sample.? No intervention since patient is clinically doing very well. 04/13/2023:? Patient continues to feel quite well.? No fever.? Arm pain and motion is continuing to improve.? Blood cultures now negative at 48 hours. 04/14/2023: He continues to feel well. Still having some neck pain. No fever. Right arm and shoulder pain and motion close to back to normal. Blood cultures now negative at 72 hours. PICC line placed today. Home on IV Ancef. Will schedule for 3 weeks total of IV antibiotics, through TuesdayApril 29. Infectious disease consult next to determine ongoing evaluation and treatment. Spoke to [facility] office at [facility].? Patient is arranged for outpatient follow-up next , April 21 at 10:30 a.m. with Dimitris Masters MD. phone number [phone].? Fax number [phone]. Office contact Marlene.? Address [address] [place] [address], [address] Status at Discharge Functional status at discharge: independent ambulation Overall status at discharge: patient is progressing back to baseline Time Spent with Patient Time attestation: Total time spent providing and/or coordinating discharge services: Time spent: Greater than 30 minutes Exam Narrative: Exam Narrative: He is alert and appears in no distress. Neck with still decreased range of motion and mild discomfort with palpation over the right side of the neck. No mass. Shoulder has near normal range of motion. No tenderness with palpation. Const: Vital Signs, click to edit/add: Vital Signs - 24 hr 04/13/23 11:30 04/13/23 15:00 04/13/23 19:00 Temperature 98.0 F 97.8 F 98.7 F Pulse Rate [Pulse Oximeter] 88 72 58 L Respiratory Rate 16 18 16 Blood Pressure [Ri ght Arm] 123/57 L 136/68 141/67 H Pulse Oximetry 98 98 99 Oxygen Delivery Me thod Room Air Room Air Room Air 04/13/23 23:00 04/14/23 07:00 Temperature 98.1 F 97.9 F Pulse Rate [Pulse Oximeter] 53 L 55 L Respiratory Rate 18 20 Blood Pressure [Ri ght Arm] 160/74 H 171/73 H Pulse Oximetry 98 100 Oxygen Delivery Me thod Room Air Room Air Documenting provider has reviewed patient's vital signs: yes DS: Data Data Completed and Pending Labs on day of discharge: Labs from last 24 hours 04/14/23 05:15 WBC 8.90 RBC 4.08 L Hgb 11.3 L Hct 35.0 L MCV 86 MCH 28 MCHC 32 RDW Coeff of Kailash 13.5 Plt Count 328 Neut % (Auto) 54.8 Lymph % (Auto) 28.5 Sibley % (Auto) 13.3 H Eos % (Auto) 0.2 Baso % (Auto) 0.2 Neut # (Auto) 4.87 Lymph # (Auto) 2.54 Sibley # (Auto) 1.20 H Eos # (Auto) 0.02 Baso # (Auto) 0.02 C-Reactive Protein 3.2 H Preliminary micro results at discharge 04/13/23 06:31 Blood Culture - Preliminary Blood NO GROWTH AFTER 24 HOURS 04/11/23 06:03 Blood Culture - Preliminary Blood NO GROWTH AFTER 72 HOURS 04/12/23 05:56 Blood Culture - Preliminary Blood NO GROWTH AFTER 48 HOURS 04/10/23 06:27 Blood Culture - Preliminary Blood Staphylococcus aureus Imaging MR - Other: Radiologist's impression: SHOULDER MRI: INDICATION: Shoulder pain. Bacteremia. COMPARISON: CT 08 April 2023. TECHNIQUE: Axial PD and T2, coronal T1, PD and STIR and sagittal PD and T2 precontrast sequences. 15 mL Dotarem gadolinium intravenous contrast with axial and coronal T1 fat-sat postcontrast images. FINDINGS: Complex fluid in the subacromial/subdeltoid bursa most conspicuously in the subcoracoid recess. Mild osteoarthritis AC joint. Mild osteoarthritis glenohumeral joint with fairly uniform high grade 2 to grade 3 thinning. No joint effusion. No inflammatory arthritis findings. No capsulitis. No osteomyelitis. No pathologic adenopathy. Heterogeneous intermediate signal tendinosis in the supraspinatus. No tear. Some tendinosis of the margins of the subscapularis without tear. IMPRESSION: Prominent subacromial/subdeltoid bursitis presumably infectious given the history. Fluid is not typical bland bursitis. Inflammatory etiologies in the differential. Consider sampling the fluid. CERVICAL SPINE MRI: INDICATION: Bacteremia. COMPARISON: 04/08/2023. TECHNIQUE: Sagittal T1, T2, and STIR sequences. Axial T2/gradient sequences. Post gadolinium T1 weighted sequences. FINDINGS: Normal vertebral body facet alignment. No fractures. No vertebral body loss of height. No spondylolisthesis. No ligamentous injury. No suspicious osseous lesions. Normal cord signal. No intradural mass or lesion. Marrow edema of the articular processes of the right C4-5 facet joint may represent stress reaction or mild inflammation facet arthritis. No discitis or osteomyelitis in the cervical spine. No epidural mass or lesion. C1-2: No spinal canal narrowing. C2-3: No spinal canal or neural foraminal narrowing. C3-4: No spinal canal neural foraminal narrowing. C4-5: Disc generation posterior disc bulging disc osteophyte complex. Mild narrowing of spinal canal. No neural foraminal narrowing. C5-6: Disc degeneration posterior disc bulge or disc osteophyte complex. No narrowing of spinal canal. Moderate narrowing of the right neural foramen. Mild narrowing of the left neural foramen. C6-7: No spinal canal neural foraminal narrowing. C7-T1: No spinal canal or neural foraminal narrowing. IMPRESSION: 1. Normal alignment. No fractures 2. Normal cord signal. 3. Mild marrow edema of the articular processes of the right C4-5 facet joint may represent stress reaction or mild inflammation 4. No discitis or osteomyelitis. 5. Cervical spondylosis 6. At C4-5, mild narrowing of the spinal canal 7. At C5-6, moderate narrowing of the right neural foramen. Mild narrowing of the left neural foramina THORACIC SPINE MRI: INDICATION: Bacteremia. COMPARISON: CT chest 04/08/2023. TECHNIQUE: Sagittal T1, T2, and STIR sequences. Axial T2/gradient sequences. Post gadolinium 2 weighted sequences. FINDINGS: Normal vertebral body facet alignment. No fractures. No vertebral body loss of height. No spondylosis is. No evidence injury. Normal marrow signal. No suspicious osseous lesions. No abnormal signal intensity or enhancement involving the disc spaces or endplates of the thoracic spine. No discitis or osteomyelitis in the thoracic spine. Normal cord signal. No intradural mass or lesion. Mild thoracic spondylosis. T11-12: Disc degeneration posterior disc bulge. No narrowing of spinal canal. No neural foraminal narrowing. No spinal canal or neural foraminal narrowing at the remaining levels. Normal paraspinal soft tissues. Small left pleural effusion. Impression : 1. Normal alignment. No fractures 2. No diskitis or osteomyelitis in the thoracic spine 3. Normal cord signal. No intradural mass lesion. 4. Mild thoracic spondylosis 5. No spinal canal or neural foraminal narrowing at the remaining levels of the thoracic spine LUMBAR SPINE MRI: INDICATION: Bacteremia. COMPARISON: MRI 07/01/2021. Technique Sagittal T1, T2, and STIR sequences. Axial T1 and T2 weighted sequences. Post gadolinium T1 weighted sequences FINDINGS: Degenerative retrolisthesis of L2 on L3, L3 on L4 on L4 on L5 measures approximately 5 mm. Otherwise, normal alignment. No fractures. No vertebral body loss of height. No ligamentous injury. No suspicious osseous lesions. Normal conus terminates at L1. No abnormal signal intensity or enhancement of the disc spaces. No discitis or osteomyelitis. No evidence of septic facet joints. L1-2: No spinal canal or neural foraminal narrowing. L2-3: Advanced disc degeneration. Modic type 1 endplate changes. Diffuse disc bulge eccentric to the left. Mild narrowing of spinal canal. No neural foraminal narrowing. L3-4: Advanced disc degeneration. Mixed Modic type 1 and 2 endplate changes. Diffuse disc bulge eccentric to the right. Moderate narrowing of spinal canal. Moderate right and mild left neural foraminal narrowing. Mild facet arthropathy. L4-5: Disc degeneration. Diffuse disc bulge. [id number] narrowing of spinal canal. Moderate severe right and mild left neural foraminal narrowing. Potential impingement of the exiting right L4 nerve root. Mild os arthropathy. L5-S1: No narrowing of spinal canal. Small 5 mm synovial cyst the right facet joint. Otherwise, no anjali impingement of the traversing S1 nerve roots. Moderate bilateral foraminal narrowing. Severe facet arthropathy. Degenerative changes of the SI joints. No retroperitoneal adenopathy. IMPRESSION: 1. No diskitis or osteomyelitis. 2. Degenerative retrolisthesis of L2 on L3, L3 on L4 and L4 on L5. Otherwise normal alignment. No fractures 3. Lumbar spondylosis. 4. At L2-3, mild narrowing of spinal canal 5. At L3-4, moderate narrowing of spinal canal. Moderate right and mild left neural foraminal narrowing. 6. At L4-5, mild to moderate narrowing of spinal canal. Moderate severe right neural foraminal narrowing. Potential impingement of the exiting right L4 nerve root 7. No spinal canal or neural foraminal narrowing at the remaining levels Dictated by Mauricio Boland MD @ 04/11/2023 7:36:04 PM Discharge Plan Discharge Disposition: Home, Self-Care Date of Admission: 04/09/23 08:15 Attending Provider on Discharge: Ronaldo Foster Consulting Providers: Allen Banuelos Primary Care Provider: Kush Huntley Condition: Stable Anticipated Discharge Date/Time: 04/14/23 15:00 Discharge Medications: Continued acetaminophen [Tylenol Extra Strength] 500 mg tablet 500 mg PO Q6H PRN hydroxyzine HCl 25 mg tablet 25 - 50 mg PO TID PRN (Reason: anxiety) Qty: 90 1RF triamcinolone acetonide 0.1 % cream 1 applic topical BID Qty: 80 0RF Rx Instructions: Apply topically to affected area twice daily for 3 days at a time, give 4 days off of cream to minimize thinning of skin tramadol 50 mg tablet 50 mg PO QHS MDD 6 PRN (Reason: pain) Changed prednisone 20 mg tablet 10 mg PO DAILY Qty: 10 0RF Rx Instructions: Take 60mg daily x 1 week, then 40 mg daily x 1 week, then 20 mg daily x 1 week. Discontinued methotrexate sodium 2.5 mg tablet 20 mg PO QWEEK Qty: 32 0RF Patient Comments: TUESDAY Discharge Orders: Discharge Order (Routine); Ordered 04/14/23 Ordered By: Ronaldo Foster Additional Instructions: Outpatient IV antibiotics Infectious disease appointment with Dr. Dimitris Masters at his office next to [facility], [address] [place] [address]. Phone number [phone]. Appointment time: April at 10:30 a.m. Activity Level: No Restrictions Discharge Diet: Regular Follow Up Appointments: Kush Huntley MD [Primary Care Provider] - Forms: [employer] Info Instructions
[2023-04-14 11:00] VITALS: BP 142/61; PULSE 79; RESP 20; TEMP 36.6; O2SAT 99
--- NOTE | 2023-04-14 12:00 | CRLHL7_ITS ---
For Patients: As a result of the Cures Act, medical imaging exams and procedure reports are released immediately into your electronic medical record. You may view this report before your referring provider. If you have questions, please contact your health care provider. Indication: Antibiotics Technique: Grayscale fluoroscopic images of the right basilic vein and right internal jugular vein. IMPRESSION: Sonographic guidance for right arm PICC line placement. Dictated by Dmitry Little MD @ 04/14/2023 2:03:49 PM (Electronically Signed)
[2023-04-14 12:03] VITALS: TEMP 36.6
--- NOTE | 2023-04-14 12:41 | PC.SOCIAL ---
Addendum entered by MARGE Pedro 04/14/23 14:17: Faxed requested PICC information to [facility]. Addendum entered by GIULIA Stokes 04/14/23 13:33: Discussed costs with pt for home infusions services. Pt was ok with the cost. Phone call to Emilie at [facility] ([phone]) and provided her with an update. Original Note: Received a phone call from Emilie at [facility] ([phone]). Emilie informs that pt will have to pay $26.07 a day for supplies for home infusion. Emilie is working to figure out if they have home health available to do the teachings. Emilie would like information on when the antibiotic is currently being administered and would like to know if pt is ok with the cost. Meds are being administered at 1am, 9am, and 5pm. This worker will follow up with pt to discuss charges. PICC is being placed this afternoon. Faxed the medication prescription to [facility] at [phone]. Will follow up as needed.
[2023-04-14 15:00] VITALS: BP 148/71; PULSE 78; RESP 20; TEMP 36.6; O2SAT 100
--- NOTE | 2023-04-14 15:18 | PC.SOCIAL ---
Addendum entered by MARGE Pedro 04/14/23 16:22: [facility] home care for the 3:00pm dose at his home tomorrow and will do the teaching with him then. Per Emilie, Jenni was unable to find a home health care agency to provide the weekly PICC line care. Jenni has contacted [facility] center and confirmed they would be able to provide the once a week PICC line care there. RN aware of this plan and [facility] will reach out to RN regarding any orders they need to provide this care. Original Note: Discharge plans: Received call from Emilie Arteaga, , stating they are still working on wound care and home IV abx plan, but that they are unable to start before the next few doses. Per Emilie, pt needs to stay at the hospital through his 8:00am dose tomorrow morning. They will call later or in the morning to confirm when they will be able to start at home. automotive worker foreman to follow up as needed.
[2023-04-14 19:00] VITALS: BP 147/77; PULSE 78; RESP 20; TEMP 36.6; O2SAT 100
--- NOTE | 2023-04-14 19:15 | PC.NURSE ---
End of Shift: Pt AO throughout shift, tolerating regular diet well. Right PICC line placed today for outpatient infusions, patent and intact. Discharge planned for today after third abx administration, pt to return for outpatient infusions starting tomorrow morning. Pt independent in room. Pain well-controlled with tramadol and tylenol.
--- NOTE | 2023-04-14 22:18 | PC.NURSE ---
Patient vitally stable. All concerns addressed. Patient informed of return process and time for infusion in the am. Patient verbalizes understanding. Patient discharged to home.
--- NOTE | 2023-04-15 10:15 | PC.SOCIAL ---
Received a voicemail from Emilie at [facility] confirming that pt will have IV antibiotics delivered to the home today and staff will be out this afternoon to do the teaching with pt and family. [facility] will follow up with pt to provide information. Provided update to charge nurse.
== END 2023-04-14 22:15 | disposition home or self-care (01) | DRG 557 ==
LOC: ED 21:37 → MEDSURG 04-09 00:51
PROVIDERS: Internal Medicine; Admitting Provider Internal Medicine; Emergency Provider Family Medicine; PCP Family Medicine; Visit Provider Family Medicine
DX: M71.111 Other infective bursitis, right shoulder (principal); J18.9 Pneumonia, unspecified organism; R78.81 Bacteremia; D84.821 Immunodeficiency due to drugs; E87.1 Hypo-osmolality and hyponatremia; E27.3 Drug-induced adrenocortical insufficiency; T38.0X5A Adverse effect of glucocorticoids and synthetic analogues, initial encounter; B95.61 Methicillin susceptible Staphylococcus aureus infection as the cause of diseases classified elsewhere; L93.2 Other local lupus erythematosus; M54.2 Cervicalgia; Z79.52 Long term (current) use of systemic steroids; R39.11 Hesitancy of micturition; N40.1 Benign prostatic hyperplasia with lower urinary tract symptoms; Z79.631 Long term (current) use of antimetabolite agent
CPT/HCPCS: 36415; 36573; 51798; 70450; 71045; 71260; 72125; 72156; 72157; 72158; 73200; 73223; 80048; 80053; 81001; 82550; 83605; 84145; 84443; 85025; 85651; 86140; 86703; 87040; 87081; 87186; 87449; 87631; 87899; 93306; 94761; 97110; 97116; 97162; 97165; 97535; 99199; 99283; 99285; A9270; A9575; C1751; G0378; J0456; J0690; J0696; J1650; J3370; J7030; J7050; J7512; Q9967

== ENCOUNTER 2023-04-15 09:10 | Outpatient (CLI) | payer OTHER, SELFPAY ==
[2023-04-15] MEDS: CEFAZOLIN 2 GM in 0.9 % SODIUM CHLORIDE Mini-bag 100 ML IVPB (09:21)
[2023-04-15] MEDS: SODIUM CHLORIDE 0.9 % (FLUSH) 10 ML SYRINGE 5 ML IVF ×2 (09:47→10:00)
[2023-04-15 09:48] VITALS: BP 129/72; PULSE 80; RESP 18; TEMP 36.6; O2SAT 100
== END 2023-04-15 10:01 | disposition home or self-care (01) ==
LOC: MS OUT 09:12 → MEDSURG 09:15 → MS OUT 14:25
PROVIDERS: PCP Family Medicine; Visit Provider Family Medicine
DX: R78.81 Bacteremia (principal); B95.61 Methicillin susceptible Staphylococcus aureus infection as the cause of diseases classified elsewhere
CPT/HCPCS: 96365; 99211; J0690

== ENCOUNTER 2023-05-02 09:15 | Outpatient (RCR) | payer OTHER, SELFPAY ==
[2023-05-02 11:53] VITALS: RESP 14; TEMP 36.1
--- NOTE | 2023-05-02 11:54 | ONC.NURNOTE ---
paty picc line removal well. no redness or drainage at site. tip intact. waited , lying down , 1/2 hr after removal. no bleeding.
== END 2023-10-17 23:59 | disposition home or self-care (01) ==
LOC: CCIC 09:15
PROVIDERS: PCP Family Medicine; Referring Provider Family Medicine; Visit Provider Family Medicine
DX: M75.51 Bursitis of right shoulder (principal); L93.2 Other local lupus erythematosus; R78.81 Bacteremia; B95.61 Methicillin susceptible Staphylococcus aureus infection as the cause of diseases classified elsewhere
CPT/HCPCS: 36589; 99211; A4221

== ENCOUNTER 2023-05-05 17:43 | Emergency (ER) | payer OTHER, SELFPAY ==
[2023-05-05 17:46] VITALS: BP 138/68; PULSE 89; RESP 18; TEMP 36.9; O2SAT 97; BMI 20.1
[2023-05-05] MEDS: predniSONE 10 MG TABLET 40 MG PO (18:41)
--- NOTE | 2023-05-05 18:58 | ED.GENADULT ---
HPI - General Adult General Chief complaint: Skin/Abscess/Foreign Body Stated complaint: Rash Time Seen by Provider: 05/05/23 17:44 Source: patient and family Mode of arrival: ambulatory Limitations: no limitations History of Present Illness HPI narrative: 67-year-old male with notable history of lupus presents to the emergency department with body rash. Rash has been present for 10 days. Started on the legs, red, raised. Worsening in nature, very itchy. No new medications around the time of the start of this. His only long-term medication is methotrexate. He has known history of cutaneous lupus any does state that this rash appears somewhat similar. He is concerned because there a couple of weepy areas down on the legs and some black adherent material. He called his assignment manager yesterday, was placed on hydroxyzine for itch and given a prescription for azithromycin. He has taken the azithromycin yesterday and now today with no significant improvement. He has a history of bacteremia, those notes are reviewed from March. He has not been having any fever, no weakness, no systemic signs of illness. He has not been applying any topical creams to this rash recently. He is feeling otherwise well besides the itch. He had previously been on long-term prednisone but has only been off of it for a few weeks. No systemic body symptoms, otherwise feeling well. Past medical history most notable for recent bacteremia, prior lupus. Long-term methotrexate use. Denies long-term kidney disease or other autoimmune conditions. No new topical exposures. Hospital notes from last month reviewed as well. ROS is notable for the skin symptoms as above, otherwise denies times 12 systems. Related Data Home Medications Medication Instructions Recorded Confirmed acetaminophen 500 mg tablet 500 mg PO Q6H PRN 04/05/23 04/20/23 (Tylenol Extra Strength) tramadol 50 mg tablet 50 mg PO QHS PRN pain 04/09/23 04/20/23 cefazolin 1 gram solution for 1 g IV TID 04/20/23 04/20/23 injection prednisone 20 mg tablet 20 mg PO DAILY 04/20/23 methotrexate sodium 2.5 mg tablet 20 mg PO 05/05/23 Previous Rx's Medication Instructions Recorded hydroxyzine HCl 25 mg tablet 25 - 50 mg (1 - 2 x 25 mg) PO TID 03/28/23 PRN anxiety #90 tabs azithromycin 250 mg tablet 250 mg PO QDAY #21 tabs 05/04/23 hydroxyzine HCl 50 mg tablet 50 mg PO QHS #90 tabs 05/04/23 prednisone 10 mg tablet 10 mg PO DIRECTED #33 tabs 05/05/23 triamcinolone acetonide 0.5 % 1 applic topical DAILY #15 grams 05/05/23 topical cream Allergies Allergy/AdvReac Type Severity Reaction Status Date / Time No Known Drug Allergies [facility] Verified [facility]/20[facility]23 07:44 [facility] Medical History MSSA bacteremia ?R78.81 - Bacteremia (ICD-10) ?B95.61 - Methicillin susceptible Staphylococcus aureus infection as the cause of diseases classified elsewhere (ICD-10) Urinary hesitancy ?R39.11 - Hesitancy of micturition (ICD-10) Adrenal insufficiency due to corticosteroid withdrawal ?E27.3 - Drug-induced adrenocortical insufficiency (ICD-10) ?T38.0X5A - Adverse effect of glucocorticoids and synthetic analogues, initial encounter (ICD-10) Immunosuppression due to chronic steroid use ?D84.821 - Immunodeficiency due to drugs (ICD-10) ?T38.0X5A - Adverse effect of glucocorticoids and synthetic analogues, initial encounter (ICD-10) ?Z79.52 - technician terminal and repeater (current) use of systemic steroids (ICD-10) Cutaneous lupus erythematosus ?L93.2 - Other local lupus erythematosus (ICD-10) Boil ?L02.92 - Furuncle, unspecified (ICD-10) Lupus ?M32.9 - Systemic lupus erythematosus, unspecified (ICD-10) Social History Narrative: He is and is present with his in the hospital. Does not smoke. No recreational drug use. Occasional alcohol use. Code status is full. 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 School has been out for the last few weeks. He lives in a house with a pet bird, Harris. No recent travel. No recent exposures except as noted above What is your current living situation?: I presently have a place to live Problems where you live: no known problems Problems where you live details: none In the past 12 months, utilities in danger of being shut off: no In the past 12 mos, have been you worried that your food would run out before you had money to buy more?: never true In the past 12 mos, the food you bought just didn't last and you didn't have money to buy more?: never true Highest level of school completed/degree received: Master's degree Smoking Status: Never smoker Do you use any of these nicotine containing products: None Second hand tobacco smoke exposure: No How often do you have a drink containing alcohol: 2-3 times a week How many standard drinks containing alcohol do you have on a typical day: 1 or 2 How often do you have six or more drinks on one occasion: Never AUDIT-C Alcohol total score: 3 Non-prescribed substance use: denies use Caffeine: Yes (2 cups of coffee) How often does anyone, including family, friends and others, physically hurt you: never How often does anyone, including family, friends and others, insult or talk down to you: never How often does anyone, including family, friends and others, threaten you with harm: never How often does anyone, including family, friends and others, scream or curse at you: never Little interest or pleasure in doing things: several days Feeling down, depressed, or hopeless: several days Gender Identity: male service: No Exam Const: Vital Signs, click to edit/add: Vital Signs - 24 hr 05/05/23 17:46 Temperature 98.4 F Pulse Rate [Pulse Oximeter] 89 Respiratory Rate 18 Blood Pressure [Ri ght Upper Arm] 138/68 Pulse Oximetry 97 Oxygen Delivery Me thod Room Air Documenting provider has reviewed patient's vital signs: yes Common normals: no apparent distress General appearance: cooperative and well kempt Other: Excellent historian. Excellent insight. HENMT: Common normals: normocephalic Head and scalp: normocephalic Other: Acyanotic lips with moist appearing membranes Resp: Common normals: normal respiratory effort and no use of accessory muscles Effort & inspection: able to speak in complete sentences Extremity: Other: Joints without effusions. Knees, ankles with good range of motion, no limitations. Neuro: Speech: speech normal Motor exam: no movement abnormalities noted Psych: Appearance: well kempt Attitude: calm and engaged Insight: insight good Judgement: judgment good Skin: Narrative: Maculopapular, raised red rash legs, torso, sparing face palms and soles. Some mild excoriation. A few blistered lesions on right external lateral calf area. There are clothing fiber stuck to it causing the black discoloration but no significant eschar. No significant weeping, no surrounding warmth or confluent redness just the raised singular lesions. Wide distribution, large surface area coverage Course Course Hospital Course: Differential diagnosis including cellulitis, autoimmune reaction, contact dermatitis, allergic reaction, among others. Appearance consistent with cutaneous lupus verses id reaction. No high risk medications for it reaction. Does not appear confluent with sun-exposed areas. Recommend systemic and topical steroids. I do like that he has already been placed on an oral antibiotic, azithromycin for the next few weeks by his assignment manager. This will reduce his chance of repeat bacteremia. There are no signs of systemic illness at this time. Restart prednisone 40 mg given in ED, then continue on 30 mg daily for 5 days then 20 mg daily for 5 days, then 10 mg daily for 5 days, then 5 mg for 6 days. Patient will need follow-up and to contact his assignment manager or spud grader within the next 5 days to update them on progress and any further instructions. He is given a prescription for high-dose triamcinolone cream which he will dilute in 16 oz of Vanicream and apply liberally to the affected areas. He will continue the Vistaril that he has already been prescribed. Alarm symptoms such as weakness, high fever would warrant repeat ED evaluation, he verbalizes understanding and agreement. Vital Signs Vital signs: Initial Vital Signs Temperature 98.4 F 05/05/23 17:46 Temperature Source Temporal Artery Scan 05/05/23 17:46 Pulse Rate 89 05/05/23 17:46 Respiratory Rate 18 05/05/23 17:46 Blood Pressure 138/68 05/05/23 17:46 Blood Pressure Mean 91 05/05/23 17:46 Blood Pressure Position Supine 05/05/23 17:46 Pulse Oximetry 97 05/05/23 17:46 Oxygen Delivery Method Room Air 05/05/23 17:46 Vital Signs Temperature 98.4 F 05/05/23 17:46 Pulse Rate 89 05/05/23 17:46 Respiratory Rate 18 05/05/23 17:46 Blood Pressure 138/68 05/05/23 17:46 Pulse Oximetry 97 05/05/23 17:46 Oxygen Delivery Method Room Air 05/05/23 17:46 Temperature 98.4 F 05/05/23 17:46 Pulse Rate 89 05/05/23 17:46 Respiratory Rate 18 05/05/23 17:46 Blood Pressure 138/68 05/05/23 17:46 Pulse Oximetry 97 05/05/23 17:46 Oxygen Delivery Method Room Air 05/05/23 17:46 Discharge Plan Discharge Clinical Impression: Cutaneous lupus erythematosus Patient Disposition: Home w/ Parent or Adult Condition: Stable Instructions: Lupus Erythematosus (DC) Additional Instructions: As we discussed, your rash appears to be an immune system reaction. Since you are not taking any of the typical offending medications, I suspect that this is an autoimmune process, likely related to your lupus. I do agree with the antibiotic that was prescribed by your assignment manager. Continue taking this. It will prevent a secondary bacterial infection. I do not detect any sign of significant bacterial superinfection at this time which is great. I do recommend that we aggressively start treating the autoimmune response however. I have started you on prednisone. I have sent a prescription to your pharmacy. You will take 3 pills once daily for 5 days, then decrease to 2 pills for 5 days, then 1 pill daily for 5 days and then half a pill daily for the remaining 6 days. If your spud grader or assignment manager chooses to change this, their recommendations do over ride mine. I have prescribed a compound did topical cream for you to apply. It is a very potent steroid that you will dilute in 16 oz of Vanicream. Eucerin is okay to if anti cream is unavailable. You will mix this very well and then apply to the rash once daily until it has improved significantly. Once significant improvement has been obtained, you may then just apply plain Vanicream and eliminate the steroid. This is at risk of becoming infected, if you start running a high fever, feel very weak or ill, please come back right away. Activity Level: No Restrictions Discharge Diet: Regular Prescriptions: New triamcinolone acetonide 0.5 % cream 1 applic topical DAILY Qty: 15 1RF Rx Instructions: Dilute in 16 oz of Vanicream and apply once daily liberally to affected rash area prednisone 10 mg tablet 10 mg PO DIRECTED Qty: 33 0RF Rx Instructions: 3 tablets once daily for 5 days, then 2 daily for 5d, then 1 daily for 5d, then half daily until gone No Action acetaminophen [Tylenol Extra Strength] 500 mg tablet 500 mg PO Q6H PRN hydroxyzine HCl 25 mg tablet 25 - 50 mg PO TID PRN (Reason: anxiety) Qty: 90 1RF prednisone 20 mg tablet 20 mg PO DAILY Rx Instructions: Take 60mg daily x 1 week, then 40 mg daily x 1 week, then 20 mg daily x 1 week. cefazolin 1 gram recon soln 1 g IV TID Patient Comments: [NO ORIGINAL SIG] tramadol 50 mg tablet 50 mg PO QHS MDD 6 PRN (Reason: pain) methotrexate sodium 2.5 mg tablet 20 mg PO azithromycin 250 mg tablet 250 mg PO QDAY Qty: 21 0RF hydroxyzine HCl 50 mg tablet 50 mg PO QHS Qty: 90 0RF Follow Up/Referrals: Kush Huntley MD [Primary Care Provider] - Stand Alone [facility]
== END 2023-05-05 18:54 | disposition home or self-care (01) ==
LOC: ED 18:47
PROVIDERS: Emergency Provider Family Medicine; PCP Family Medicine
DX: L93.1 Subacute cutaneous lupus erythematosus (principal)
CPT/HCPCS: 99283; J7512

== ENCOUNTER 2023-05-19 08:03 | Outpatient (CLI) | payer OTHER, SELFPAY | END 2023-05-19 08:04 | disposition home or self-care (01) | LOC: FRMREF 08:09 | PROVIDERS: PCP Family Medicine; Visit Provider Dermatology | DX: L30.9 Dermatitis, unspecified (principal); Z79.899 Other long term (current) drug therapy; Z79.631 Long term (current) use of antimetabolite agent | CPT/HCPCS: 80076; 83516; 86255 ==

== ENCOUNTER 2023-08-11 08:00 | Outpatient (CLI) | payer OTHER, SELFPAY | END 2023-08-11 08:01 | disposition home or self-care (01) | LOC: NFLDREF 08-14 20:59 | PROVIDERS: PCP Family Medicine; Referring Provider Family Medicine; Visit Provider Dermatology | DX: L30.9 Dermatitis, unspecified (principal); Z79.631 Long term (current) use of antimetabolite agent | CPT/HCPCS: 80076 ==

== ENCOUNTER 2023-11-10 15:36 | Outpatient (CLI) | payer OTHER, SELFPAY | END 2023-11-10 15:37 | disposition home or self-care (01) | LOC: NFLDREF 11-11 11:15 | PROVIDERS: PCP Family Medicine; Referring Provider Family Medicine; Visit Provider Dermatology | DX: M32.9 Systemic lupus erythematosus, unspecified (principal); Z79.899 Other long term (current) drug therapy | CPT/HCPCS: 80053 ==

== ENCOUNTER 2023-12-25 00:39 | Emergency (ER) | payer OTHER, SELFPAY ==
[2023-12-25 00:46] VITALS: BP 150/79; PULSE 66; RESP 16; TEMP 36.3; O2SAT 98; BMI 19.4
--- NOTE | 2023-12-25 01:01 | ED.GENADULT ---
HPI - General Adult General Chief complaint: Chest Pain Stated complaint: chest pain Time Seen by Provider: 12/25/23 01:01 History of Present Illness HPI narrative: chest pain mid chest started 20 minutes ago and woke him from sleep, pressure. does not radiate, no nausea or diaphoresis but patient report he is a little SOB, patient denies cardiac hx or hx of similar events in the past. 68-year-old man presenting to the emergency department with complaint of chest pain. This began 20-30 minutes prior to this interview apparently waking him from sleep. Feels like a pressure in the mid chest. No radiating pain. No nausea. Has been feeling a little short of breath. No lower extremity edema or new pain. No cardiac history apparently. Notes a history of cutaneous lupus and is immunosuppressed. Has struggled to maintain weight; last summer was hospitalized with sepsis. Social stressors along with anxiety/ has been challenging. He is accompanied here by apparently supportive spouse and child. Related Data Home Medications Medication Instructions Recorded Confirmed acetaminophen 500 mg tablet 500 mg PO Q6H PRN 04/05/23 12/22/23 (Tylenol Extra Strength) cyanocobalamin (vitamin B-12) 1,000 mcg PO DAILY 12/06/23 12/06/23 1,000 mcg tablet folic acid 1 mg tablet 1 mg PO DAILY 12/06/23 12/06/23 Previous Rx's Medication Instructions Recorded peg 3350-electrolytes 236 240 ml PO Q10M #4,000 mL 11/16/23 gram-22.74 gram-6.74 gram-5.86 gram solution (Golytely) methotrexate sodium 2.5 mg tablet 20 mg (8 x 2.5 mg) PO QWEEK #109 11/17/23 tabs hydroxyzine HCl 25 mg tablet 25 - 50 mg (1 - 2 x 25 mg) PO TID 12/22/23 PRN anxiety #180 tabs venlafaxine 37.5 mg 112.5 mg (3 x 37.5 mg) PO QDAY #90 12/22/23 capsule,extended release 24 hr caps (Effexor XR) Allergies Allergy/AdvReac Type Severity Reaction Status Date / Time No Known Drug Allergies Allergy Verified 12/22/23 15:11 Review of Systems Status of ROS: Reports: 6 or more systems reviewed and unremarkable except as noted in History and below [facility] Medical History (Updated 01/09/24 @ 00:01 by Background Daemon) Financial problems ?Z59.9 - Problem related to housing and economic circumstances, unspecified (ICD-10) Medication management ?Z79.899 - Other intermediate (current) drug therapy (ICD-10) Lupus ?M32.9 - Systemic lupus erythematosus, unspecified (ICD-10) MSSA bacteremia ?R78.81 - Bacteremia (ICD-10) ?B95.61 - Methicillin susceptible Staphylococcus aureus infection as the cause of diseases classified elsewhere (ICD-10) Urinary hesitancy ?R39.11 - Hesitancy of micturition (ICD-10) Adrenal insufficiency due to corticosteroid withdrawal ?E27.3 - Drug-induced adrenocortical insufficiency (ICD-10) ?T38.0X5A - Adverse effect of glucocorticoids and synthetic analogues, initial encounter (ICD-10) Immunosuppression due to chronic steroid use ?D84.821 - Immunodeficiency due to drugs (ICD-10) ?T38.0X5A - Adverse effect of glucocorticoids and synthetic analogues, initial encounter (ICD-10) ?Z79.52 - register of deeds (current) use of systemic steroids (ICD-10) Cutaneous lupus erythematosus ?L93.2 - Other local lupus erythematosus (ICD-10) Boil ?L02.92 - Furuncle, unspecified (ICD-10) Lupus ?M32.9 - Systemic lupus erythematosus, unspecified (ICD-10) Social History Narrative: He is and is present with his in the hospital. Does not smoke. No recreational drug use. Occasional alcohol use. Code status is full. 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 School has been out for the last few weeks. He lives in a house with a pet bird, Harris. No recent travel. No recent exposures except as noted above What is your current living situation?: I presently have a place to live Problems where you live: no known problems Problems where you live details: none In the past 12 months, utilities in danger of being shut off: no In past 12 months, lack of transportation kept you from medical appts, meetings, work, or getting things needed for daily living: no In the past 12 mos, have been you worried that your food would run out before you had money to buy more?: never true In the past 12 mos, the food you bought just didn't last and you didn't have money to buy more?: never true Highest level of school completed/degree received: Master's degree Smoking Status: Never smoker Do you use any of these nicotine containing products: None Second hand tobacco smoke exposure: No How often do you have a drink containing alcohol: 2-3 times a week How many standard drinks containing alcohol do you have on a typical day: 1 or 2 How often do you have six or more drinks on one occasion: Never AUDIT-C Alcohol total score: 3 Non-prescribed substance use: denies use Caffeine: Yes (2 cups of coffee) How often does anyone, including family, friends and others, physically hurt you: never How often does anyone, including family, friends and others, insult or talk down to you: never How often does anyone, including family, friends and others, threaten you with harm: never How often does anyone, including family, friends and others, scream or curse at you: never Little interest or pleasure in doing things: not at all Feeling down, depressed, or hopeless: several days Gender Identity: male service: No Exam Narrative: Exam Narrative: Pleasant. Seems a little distracted initially. Slim. Skin is warm and dry. Cranial nerves 2-12 intact. Is breathing easily, not labored. Lungs appear to be clear. Heart in regular rate and rhythm. Without murmur rub or gallop. Equal upper extremity pulses. Abdomen is soft nontender. Extremities are well perfused without edema. Not clearly able to reproduce discomfort in area as demonstrated were had occurred in the mid low sternum. Const: Vital Signs, click to edit/add: Vital Signs - 24 hr 12/25/23 00:46 Temperature 97.3 F L Pulse Rate [Pulse Oximeter] 66 Respiratory Rate 16 Blood Pressure [Ri ght Upper Arm] 150/79 H Pulse Oximetry 98 Oxygen Delivery Me thod Room Air Documenting provider has reviewed patient's vital signs: yes Course Vital Signs Vital signs: Initial Vital Signs Temperature 97.3 F L 12/25/23 00:46 Temperature Source Temporal Artery Scan 12/25/23 00:46 Pulse Rate 66 12/25/23 00:46 Respiratory Rate 16 12/25/23 00:46 Blood Pressure 150/79 H 12/25/23 00:46 Blood Pressure Mean 102 12/25/23 00:46 Blood Pressure Position Supine 12/25/23 00:46 Pulse Oximetry 98 12/25/23 00:46 Oxygen Delivery Method Room Air 12/25/23 00:46 Vital Signs Temperature 97.3 F L 12/25/23 00:46 Pulse Rate 66 12/25/23 00:46 Respiratory Rate 16 12/25/23 00:46 Blood Pressure 150/79 H 12/25/23 00:46 Pulse Oximetry 98 12/25/23 00:46 Oxygen Delivery Method Room Air 12/25/23 00:46 Temperature 97.3 F L 12/25/23 00:46 Pulse Rate 66 12/25/23 00:46 Respiratory Rate 16 12/25/23 00:46 Blood Pressure 150/79 H 12/25/23 00:46 Pulse Oximetry 98 12/25/23 00:46 Oxygen Delivery Method Room Air 12/25/23 00:46 Medications Administered Medications: Discontinued Medications Generic Name Dose Route Start Last Admin Trade Name Freq PRN Reason Stop Dose Admin Sodium Chloride 1,000 mls @ 1,000 mls/hr 12/25/23 01:38 12/25/23 03:57 0.9 % Sodium Chloride 1000 Ml IV 12/25/23 03:37 Infused .Q1H ONE Infusion Medical Decision Making MDM Narrative Medical decision making narrative: Does not appear to have infectious symptoms suggesting pneumonia. No radicular symptoms but could be vascular disruption/dissection. May be related to heartburn but this is not a usual problem. A tachyarrhythmia in differential. As would be ischemic cardiovascular event. With these concerns will monitor on air sampling and monitoring and check labs in this regard. Gallbladder disease? Does not seem consistent with pancreatitis. May have been an attack of anxiety as well. Will also give some IV fluids. Sounds as though might have some difficulty keeping up at times. We did spend some time in conversation discussing locations with which he was familiar or use to live in [facility]. On reassessment there have been no events on monitor. Overall is improved and would be looking to depart the emergency department. Labs are reassuring. See patient discharge plan for further discussion Lab Data Lab results reviewed: Yes I reviewed the patient's lab results Labs: Lab Results 12/25/23 12/25/23 Range/Units 00:40 01:30 Sodium 137 (135-149) mmol/L Potassium 3.7 (3.6-5.1) mmol/L Chloride 103 (96-114) mmol/L Carbon Dioxide 27 (20-32) mmol/L Anion Gap 7 (7-15) mEq/L BUN 15 (7-30) mg/dL Creatinine 0.7 (0.5-1.5) mg/dL Estimated Creat Clear 61.24 Estimated GFR 100 ml/min Glucose 105 (60-115) mg/dL Calcium 9.0 (8.4-10.6) mg/dL Total Bilirubin 0.5 (0.1-1.5) mg/dL Direct Bilirubin 0.3 (0.0-0.5) mg/dL AST 27 (12-35) U/L ALT 17 (4-50) U/L Alkaline Phosphatase 51 (40-150) U/L Troponin I < 0.01 L (0.01-0.04) ng/mL C-Reactive Protein < 0.5 L (0.5-1.0) mg/dL NT-Pro-B Natriuret Pep 138 pg/mL Total Protein 7.2 (6.0-8.3) g/dL Albumin 4.1 (3.3-5.0) g/dL Lipase 146 (23-300) U/L POC Troponin I 0.00 L (0.01-0.04) ng/ml ECG Data Attestation: I personally reviewed and interpreted this ECG as follows: (Normal sinus rhythm rate of 62. No acute ischemic changes) Discharge Plan Discharge Clinical Impression: Atypical chest pain Patient Disposition: Home w/ Parent or Adult Condition: Improved Additional Instructions: I am happy you are feeling better. Maybe it is time to make a trip up to [place] and check out some of the old places. Your labs were reassuring here today. Return for persistent chest pain, increasing shortness of breath. Prescriptions: No Action acetaminophen [Tylenol Extra Strength] 500 mg tablet 500 mg PO Q6H PRN cyanocobalamin (vitamin B-12) 1,000 mcg tablet 1,000 mcg PO DAILY folic acid 1 mg tablet 1 mg PO DAILY hydroxyzine HCl 25 mg tablet 25 - 50 mg PO TID PRN (Reason: anxiety) Qty: 180 11RF venlafaxine [Effexor XR] 37.5 mg capsule,extended release 24hr 112.5 mg PO QDAY Qty: 90 11RF Rx Instructions: 3 c qd for anxiety, mood peg 3350-electrolytes [Golytely] 236-22.74-6.74 -5.86 gram recon soln 240 ml PO Q10M Qty: 4000 0RF Rx Instructions: until fecal effluent is clear methotrexate sodium 2.5 mg tablet 20 mg PO QWEEK Qty: 109 0RF Follow Up/Referrals: Kush Huntley MD [Primary Care Provider] - Stand Alone Forms: [facility] Info Instructions
[2023-12-25 01:52] LABS: Albumin* 4.1 g/dL (3.3-5.0); Chloride* 103 mmol/L (96-114); Sodium* 137 mmol/L (135-149)
[2023-12-25 01:53] LABS: Potassium* 3.7 mmol/L (3.6-5.1)
[2023-12-25 01:54] LABS: Creatinine* 0.7 mg/dL (0.5-1.5); Est. Creatinine Clearance* 61.24; Estimated Glomerular Filt Rate 100 ml/min; Lipase* 146 U/L (23-300)
[2023-12-25 01:55] LABS: Alkaline Phosphatase* 51 U/L (40-150); Anion Gap 7 mEq/L (7-15); Aspartate Amino Transferase* 27 U/L (12-35); Bilirubin Direct* 0.3 mg/dL (0.0-0.5); Bilirubin Total* 0.5 mg/dL (0.1-1.5); Carbon Dioxide* 27 mmol/L (20-32); Total Protein* 7.2 g/dL (6.0-8.3)
[2023-12-25 01:56] LABS: Alanine Aminotransferase* 17 U/L (4-50); Blood Urea Nitrogen* 15 mg/dL (7-30); Glucose* 105 mg/dL (60-115)
[2023-12-25] MEDS: 0.9 % SODIUM CHLORIDE 1000 ml 1,000 ML IV (01:56)
[2023-12-25 03:02] LABS: C Reactive Protein* < 0.5 mg/dL (0.5-1.0)
[2023-12-25 03:04] LABS: NT Pro B Type NatriureticPept* 138 pg/mL
[2023-12-25 03:06] LABS: Troponin I* < 0.01 ng/mL (0.01-0.04)
== END 2023-12-25 03:58 | disposition home or self-care (01) ==
PROVIDERS: Emergency Provider Family Medicine; PCP Family Medicine
DX: R07.9 Chest pain, unspecified (principal)
CPT/HCPCS: 36415; 80048; 80076; 83690; 83880; 84484; 86140; 96360; 99284; J7030

== ENCOUNTER 2024-01-06 06:32 | Outpatient (CLI) | payer OTHER, SELFPAY ==
--- NOTE | 2024-01-06 07:15 | W.ANESCHARGE ---
Anesthesia Charges Start Date/Time Anesthesia Start Date: 01/06/24 Anesthesia Start Time: 07:14 Stop Date/Time Anesthesia Stop Date: 01/06/24 Anesthesia Stop Time: 07:35
--- NOTE | 2024-01-06 07:38 | W.ANESCHARGE ---
Anesthesia Charges Start Date/Time Anesthesia Start Date: 01/06/24 Anesthesia Start Time: 07:14 Stop Date/Time Anesthesia Stop Date: 01/06/24 Anesthesia Stop Time: 07:35
== END 2024-01-06 06:33 | disposition home or self-care (01) ==
LOC: OP CLINIC 06:32
PROVIDERS: PCP Family Medicine; Visit Provider Internal Medicine
DX: Z12.11 Encounter for screening for malignant neoplasm of colon (principal); K64.8 Other hemorrhoids; Z86.010 Personal history of colon polyps
CPT/HCPCS: 00811; 00812; 45378; J2704

== ENCOUNTER 2024-09-11 16:50 | Outpatient (CLI) | payer OTHER, SELFPAY ==
--- OUTSIDE RECORDS SUMMARY | 2024-09-12 11:37 | XMS_ITS | Clinical Summary ---
Author Organization [facility] Address [address] [place] [address] Care Team Providers Care Radiology Physician Assistant Name Role Phone Kush Huntley MD Primary Care Provider + [phone] Source Comments You are receiving this document as you are listed as the primary care provider,follow-up provider, or the patient has been referred to you for consultation.This is in compliance with the Medicare and[facility] EHR Incentive Program,which states Providers who transition their patient to another setting of careor provider of care or refers their patient to another provider of care shouldprovide summary care record for each transition of care or referral. [employer] Allergies Active Allergy Reactions Criticality Noted Date Comments Hydroxychloroquine Rash High 09/06/2023 Medications Medication Sig Dispensed Refills Start Date End Date Status hydrOXYzine HCl (ATARAX) 25 MG tablet Take 1-2 Tablets (25-50 mg) by mouth three times a day as needed. 09/01/2023 Active folic acid 1 MG tablet Take 1 Tablet (1 mg) by mouth daily. 90 Tablet 3 09/06/2023 Active cyanocobalamin (VITAMIN B12) 1000 MCG tablet Take 1 Tablet (1,000 mcg) by mouth daily. 90 Tablet 3 10/20/2023 10/14/2024 Active budesonide-formotero l (SYMBICORT) 160-4.5 MCG/ACT inhaler Inhale 2 Puffs two times a day. Rinse mouth/gargle after use. 1 Each 01/10/2024 01/09/2025 Active methotrexate 2.5 MG tablet Take 8 Tablets (20 mg) by mouth once every week. 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 Overview (02/28/2024): DA reviewed: on MTX for subacute cutaneous lupus erythematosus Hypersensitivity pneumonitis 11/14/2023 Subacute cutaneous lupus erythematosus Social History Tobacco Use Types Packs/Day Years Used Date Smoking Tobacco: Never Smokeless Tobacco: Never Tobacco Cessation:Counseling Given: Not Answered Alcohol Use Standard Drinks/Week Comments Yes 0 (1 standard drink = 0.6 oz pur e alcohol) occasional Sex and Gender Information Value Date Recorded Sex Assigned at Not on file Gender Identity Not on file Sexual Orientation Not on file Last Filed Vital Signs Vital Sign Reading Time Taken Comments Blood Pressure 147/78 05/16/2024 10:08 AM CDT Pulse 83 05/16/2024 10:08 AM CDT Temperature 36.9 C (98.4 F) 06/10/2013 12:11 PM CDT Respiratory Rate 14 06/10/2013 12:11 PM CDT Oxygen Saturation 98% 03/01/2024 10:48 AM CDT Inhaled Oxygen Concentration - - Weight 59 kg (130 lb) 05/16/2024 10:08 AM CDT Height 177.8 cm (5' 10) 03/01/2024 10:48 AM CDT Body Mass Index 18.65 03/01/2024 10:48 AM CDT Plan of Treatment Health Maintenance Due Date Last Done Comments Colon Cancer Screening Plan Due 1955 Medicare Welcome Visit 1955 Cholesterol 1990 Zoster/Shingles (1 of 2) 2005 Pneumococcal 65+ Yrs (1 - PCV) 2020 COVID-19 Vaccine ( - season) 2024 08/10/2022, 01/23/2022, 08/03/2021, Additional history exists Influenza (#1) 2024 10/27/2012 RSV (1 - 1-dose 75+ series) 2030 DTaP/Tdap/Td (3 - Tdap) 12/21/2033 12/22/2023, 06/28 Hep C Screening (Preventive Services) Completed 09/06/2023 HepA Aged Out No longer eligi ble based on patient's age to complete this topic HepB Aged Out No longer eligi ble based on patient's age to complete this topic Hib Aged Out No longer eligi ble based on patient's age to complete this topic IPV (Polio) Aged Out No longer eligi ble based on patient's age to complete this topic Infant RSV Aged Out No longer eligi ble based on patient's age to complete this topic MCV4 Aged Out No longer eligi ble based on patient's age to complete this topic Procedures Procedure Name Priority Date/Time Associated Diagnosis Comments HEPATITIS C ANTIBODY, WITH REFLEX Routine 09/06/2023 10:28 AM [facility] High risk medication use from Last 3 Months or Most Recently Relevant to Health Maintenance Results * Hepatitis C Antibody, with Reflex (09/06/2023 10:28 AM [facility]) Hepatitis C Antibody Negative (Non Reactive) Negative (Non Reactive) 09/06/2023 8:45 PM [facility] Comment:Antibodies to HCV no t detected. Does not exclude the possiblity of exposure to HCV. Blood Venipuncture / Unknown 09/06/2023 10:28 AM [facility] 09/06/2023 10:28 AM [facility] Luke W Desilet DO [facility] [address] [place] [address], [facility] from Last 3 Months or Most Recently Relevant to Health Maintenance Care Teams Radiology Physician Assistant Relationship Specialty Start Date End Date Kush Huntley MD [address] [place] [address] PCP - General 09/07/23
== END 2024-09-11 16:51 | disposition home or self-care (01) ==
LOC: NFLDREF 09-12 11:35
PROVIDERS: PCP Family Medicine; Referring Provider Family Medicine; Visit Provider Nurse Practitioner Family
DX: R32 Unspecified urinary incontinence (principal); R06.2 Wheezing; R06.02 Shortness of breath; R68.83 Chills (without fever); R50.9 Fever, unspecified; R05.9 Cough, unspecified; D72.829 Elevated white blood cell count, unspecified; J18.9 Pneumonia, unspecified organism
CPT/HCPCS: 87086